=== PATIENT | female | born 1990 | race American Indian/Alaskan Native ===

== ENCOUNTER 2017-04-04 13:56 | Emergency (ER) | payer SELFPAY ==
[2017-04-04] MEDS ORDERED: Ibuprofen 600 MG Tab PO ONE (14:53)
--- NOTE | 2017-04-04 14:57 | EDM.PDOC ---
ED HPI GENERAL MEDICAL PROBLEM - General Chief Complaint: Genitourinary Problem Stated Complaint: UTI Time Seen by Provider: 04/04/17 14:00 Source of Information: Reports: Patient History Limitations: Reports: No Limitations - History of Present Illness INITIAL COMMENTS - FREE TEXT/NARRATIVE: History of present illness: [] Patient at 3 days of pain with urination and headache. She denies fevers, chills, nausea or vomiting. She also denies being . Review of systems: As per history of present illness and below otherwise all systems reviewed and negative. Past medical history: As per history of present illness and as reviewed below otherwise noncontributory. Surgical history: As per history of present illness and as reviewed below otherwise noncontributory. Social history: No reported history of drug or alcohol abuse. Family history: As per history of present illness and as reviewed below otherwise noncontributory. Physical exam: General: Well developed, well nourished in NAD HEENT: Atraumatic, normocephalic, pupils reactive, negative for conjunctival pallor or scleral icterus, mucous membranes moist, throat clear, neck supple, nontender, trachea midline. Lungs: Clear to auscultation, breath sounds equal bilaterally, chest nontender. Heart: S1S2, regular, negative for clicks, rubs, or JVD. Abdomen: Soft, nondistended, nontender. Negative for masses or hepatosplenomegaly. Negative for costovertebral tenderness. Pelvis: Stable nontender. Genitourinary: Deferred. Rectal: Deferred. Extremities: Atraumatic, negative for cords or calf pain. Neurovascular unremarkable. Neuro: Awake, alert, oriented. Cranial nerves II through XII unremarkable. Cerebellum unremarkable. Motor and sensory unremarkable throughout. Exam nonfocal. Diagnostics: [] UA positive for UTI patient is not . Therapeutics: [] Motrin Impression: [] UTI Plan: []BactrimDS twice a day until gone. increase fluids followup PMD Definitive disposition and diagnosis as appropriate pending reevaluation and review of above. urination Pain Score (Numeric/FACES): 8 - Related Data Allergies Allergy/AdvReac Type Severity Reaction Status Date / Time ibuprofen [From Advil] Allergy Other Verified 04/04/17 14:20 Home Meds: Home Meds Phenazopyridine HCl [Pyridium] 100 mg PO TID #9 tablet 04/04/17 [Rx] Sulfamethoxazole/Trimethoprim [Bactrim Ds Tablet] 1 each PO BID #20 tablet 04/04 [Rx] Past Medical History - Past Health History Medical/Surgical History: Denies Medical/Surgical History Social & Family History - Tobacco Use Smoking Status *Q: Never Smoker - Caffeine Use Caffeine Use: Reports: Coffee, Tea - Recreational Drug Use Recreational Drug Use: No ED ROS GENERAL - Review of Systems Review Of Systems: See Below (See history of present illness) ED EXAM, RENAL/ - Physical Exam Exam: See Below (See history of present illness) Course - Vital Signs Last Recorded V/S: Last Vital Signs Temp 36.5 C 04/04/17 14:26 Pulse 77 04/04/17 14:26 Resp 18 04/04/17 14:26 BP 116/71 04/04/17 14:26 Pulse Ox 99 04/04/17 14:26 - Orders/Labs/Meds Orders: Active Orders 24 hr Category Date Time Status CULTURE URINE [RM] Stat Lab 04/04/17 14:10 Received Labs: Laboratory Tests 04/04/17 04/04/17 Range/Units 14:10 14:10 Urine Color DARK YELLOW Urine Appearance SLT CLOUDY Urine pH 7.5 (5.0-8.0) Ur Specific [place] 1.015 (1.001-1.035) Urine Protein TRACE (NEGATIVE) mg/dL Urine Glucose (UA) NEGATIVE (NEGATIVE) mg/dL Urine Ketones NEGATIVE (NEGATIVE) mg/dL Urine Occult Blood NEGATIVE (NEGATIVE) Urine Nitrite POSITIVE H (NEGATIVE) Urine Bilirubin NEGATIVE (NEGATIVE) Urine Urobilinogen 4.0 H (<2.0) EU/dL Ur Leukocyte Esterase LARGE (NEGATIVE) Urine RBC 1-2 (0-2/HPF) Urine WBC 55-60 (0-5/HPF) Ur Epithelial Cells MODERATE (NONE-FEW) Urine Bacteria 1+ H (NEGATIVE) Urine HCG, Qual NEGATIVE (NEGATIVE) Meds: Medications Discontinued Medications Generic Name Dose Route Start Last Admin Trade Name Freq PRN Reason Stop Dose Admin Ibuprofen 600 mg 04/04/17 14:53 Motrin PO 04/04/17 14:54 ONETIME ONE Departure - Departure Time of Disposition: 14:55 Disposition: Home, Self-Care 01 Condition: good Clinical Impression: UTI (urinary tract infection) Qualifiers: Urinary tract infection type: site unspecified Hematuria presence: without hematuria Qualified Code(s): N39.0 - Urinary tract infection, site not specified - Discharge Information Prescriptions: Phenazopyridine HCl [Pyridium] 100 mg PO TID #9 tablet Sulfamethoxazole/Trimethoprim [Bactrim Ds Tablet] 1 each PO BID #20 tablet Referrals: PCP,None [Primary Care Provider] - Forms: ED Department Discharge Additional Instructions: The following information is given to patients seen in the emergency department who are being discharged to home. This information is to outline your options for follow-up care. We provide all patients seen in our emergency department with a follow-up referral. The need for follow-up, as well as the timing and circumstances, are variable depending upon the specifics of your emergency department visit. If you don't have a primary care physician on staff, we will provide you with a referral. We always advise you to contact your personal physician following an emergency department visit to inform them of the circumstance of the visit and for follow-up with them and/or the need for any referrals to a consulting specialist. The emergency department will also refer you to a specialist when appropriate. This referral assures that you have the opportunity for follow-up care with a specialist. All of these measure are taken in an effort to provide you with optimal care, which includes your follow-up. Under all circumstances we always encourage you to contact your private physician who remains a resource for coordinating your care. When calling for follow-up care, please make the office aware that this follow-up is from your recent emergency room visit. If for any reason you are refused follow-up, please contact the [facility] Emergency Department at and asked to speak to the emergency department charge nurse. Bactrim twice a day, Motrin or Tylenol for pain Followup PMD - My Orders Last 24 Hours: My Active Orders 04/04/17 14:10 CULTURE URINE [RM] Stat - Assessment/Plan Last 24 Hours: My Active Orders 04/04/17 14:10 CULTURE URINE [RM] Stat
[2017-04-04 15:23] VITALS: BP 114/74
== END 2017-04-04 15:17 | disposition home or self-care (01) ==
LOC: MW.ED 13:56
DX: N39.0 Urinary tract infection, site not specified (principal); Z88.6 Allergy status to analgesic agent
CPT/HCPCS: 81001; 81025; 87086; 87088; 87186; 99283; A9270

== ENCOUNTER 2017-04-18 04:45 | Emergency (ER) | payer SELFPAY ==
[2017-04-18] MEDS ORDERED: SUMAtriptan 6 MG/0.5 ML SDV SUBCUT ONE (05:10)
--- NOTE | 2017-04-18 05:14 | EDM.PDOC ---
ED HPI GENERAL MEDICAL PROBLEM - General Chief Complaint: Headache Stated Complaint: EARACHE- LEFT EAR Time Seen by Provider: 04/18/17 05:10 Source of Information: Reports: Patient - History of Present Illness INITIAL COMMENTS - FREE TEXT/NARRATIVE: HISTORY AND PHYSICAL: History of present illness: [] Patient has several complaints today she arrives by private vehicle Is migraine headache consistent with her usual migraine this improved somewhat with Tylenol she still rates 8/10, she is used Imitrex in the past which was aborted the headache she does not have any at this time Also has low-grade sinus symptoms likely contributing to the headaches as well left greater than right along with your pain which began after flying here from [place] recently She does have moderate clear effusion and dulling of landmarks no pain with movement of the auricle No fever vomiting chills sweats no chest pain shortness breath dizziness or palpitation no bowel or urine symptoms Review of systems: As per history of present illness and below otherwise all systems reviewed and negative. Past medical history: As per history of present illness and as reviewed below otherwise noncontributory. Surgical history: As per history of present illness and as reviewed below otherwise noncontributory. Social history: No reported history of drug or alcohol abuse. Family history: As per history of present illness and as reviewed below otherwise noncontributory. Physical exam: HEENT: Atraumatic, normocephalic, pupils reactive, negative for conjunctival pallor or scleral icterus, mucous membranes moist, throat clear, neck supple, nontender, trachea midline. Oropharynx mild erythema tonsils 2+ left tympanic membrane is dull with loss of landmarks injected no mastoid tenderness there is effusion present right mildly injected otherwise no mastoid tenderness no pain with movement of the auricle no meningeal sign no stridor, sinus pain noted left greater than right Lungs: Clear to auscultation, breath sounds equal bilaterally, chest nontender. Heart: S1S2, regular, negative for clicks, rubs, or JVD. Abdomen: Soft, nondistended, nontender. Negative for masses or hepatosplenomegaly. Negative for costovertebral tenderness. Pelvis: Stable nontender. Genitourinary: Deferred. Rectal: Deferred. Extremities: Atraumatic, negative for cords or calf pain. Neurovascular unremarkable. Neuro: Awake, alert, oriented. Cranial nerves II through XII unremarkable. Cerebellum unremarkable. Motor and sensory unremarkable throughout. Exam nonfocal. Diagnostics: [] Therapeutics: [] Imitrex 6 mg subcutaneous Amoxicillin 500 by mouth 3 times a day 150 mL no refill [id number] symptomatic therapies for effusion Impression: [] Acute sinusitis Migraine headache Left ear effusion Definitive disposition and diagnosis as appropriate pending reevaluation and review of above. general Pain Score (Numeric/FACES): 7 - Related Data Allergies Allergy/AdvReac Type Severity Reaction Status Date / Time ibuprofen [From Advil] Allergy Other Verified 04/18/17 04:48 Home Meds: Home Meds Phenazopyridine HCl [Pyridium] 100 mg PO TID #9 tablet 04/04/17 [Rx] Sulfamethoxazole/Trimethoprim [Bactrim Ds Tablet] 1 each PO BID #20 tablet 04/04 [Rx] Past Medical History - Past Health History Medical/Surgical History: Denies Medical/Surgical History HEENT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: None Cardiovascular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: None Respiratory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: None Gastrointestinal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: None 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: Musculoskeletal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: None Neurological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: None Psychiatric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: None Endocrine/Metabolic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: None Dermatologic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: None - Infectious Disease History Infectious Disease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: None - Past Surgical History HEENT Surgical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: None Female Surgical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: None Social & Family History - Family History Family Medical History: Noncontributory - Tobacco Use Smoking Status *Q: Never Smoker - Caffeine Use Caffeine Use: Reports: Coffee, Tea - Recreational Drug Use Recreational Drug Use: No ED ROS GENERAL - Review of Systems Review Of Systems: ROS reveals no pertinent complaints other than HPI. ED EXAM, GENERAL - Physical Exam Exam: See Below Course - Vital Signs Last Recorded V/S: Last Vital Signs Temp 36.6 C 04/18/17 04:52 Pulse 79 04/18/17 04:52 Resp 16 04/18/17 04:52 BP 129/76 04/18/17 04:52 Pulse Ox 96 04/18/17 04:52 - Orders/Labs/Meds Orders: Active Orders 24 hr Category Date Time Status SUMAtriptan [Imitrex] Med 04/18/17 05:10 Once 6 mg SUBCUT ONETIME ONE Departure - Departure Time of Disposition: 05:13 Disposition: Home, Self-Care 01 Condition: good Clinical Impression: Migraine, Sinusitis - Discharge Information Forms: ED Department Discharge Additional Instructions: Medication as prescribed Return if symptoms persist or worsen Followup with primary care as needed [facility] - [facility] [address] [place] [id number] The following information is given to patients seen in the emergency department who are being discharged to home. This information is to outline your options for follow-up care. We provide all patients seen in our emergency department with a follow-up referral. The need for follow-up, as well as the timing and circumstances, are variable depending upon the specifics of your emergency department visit. If you don't have a primary care physician on staff, we will provide you with a referral. We always advise you to contact your personal physician following an emergency department visit to inform them of the circumstance of the visit and for follow-up with them and/or the need for any referrals to a consulting specialist. The emergency department will also refer you to a specialist when appropriate. This referral assures that you have the opportunity for follow-up care with a specialist. All of these measure are taken in an effort to provide you with optimal care, which includes your follow-up. Under all circumstances we always encourage you to contact your private physician who remains a resource for coordinating your care. When calling for follow-up care, please make the office aware that this follow-up is from your recent emergency room visit. If for any reason you are refused follow-up, please contact the [facility] emergency department at and asked to speak to the emergency department charge nurse. - My Orders Last 24 Hours: My Active Orders 04/18/17 05:10 SUMAtriptan [Imitrex] 6 mg SUBCUT ONETIME ONE - Assessment/Plan Last 24 Hours: My Active Orders 04/18/17 05:10 SUMAtriptan [Imitrex] 6 mg SUBCUT ONETIME ONE
[2017-04-18 06:00] VITALS: BP 129/79
== END 2017-04-18 05:55 | disposition home or self-care (01) ==
LOC: MW.ED 04:45
DX: G43.909 Migraine, unspecified, not intractable, without status migrainosus (principal); H65.192 Other acute nonsuppurative otitis media, left ear; J32.9 Chronic sinusitis, unspecified
CPT/HCPCS: 96372; 99283; J3030

== ENCOUNTER 2017-05-30 00:33 | Emergency (ER) | payer MEDICAID ==
--- NOTE | 2017-05-30 00:45 | EDM.PDOC ---
ED HPI GENERAL MEDICAL PROBLEM - General Chief Complaint: [employer] Problem Stated Complaint: ABDOMINAL PAIN, 11 WEEKS PREG Time Seen by Provider: 05/30/17 00:42 - History of Present Illness INITIAL COMMENTS - FREE TEXT/NARRATIVE: HISTORY AND PHYSICAL: History of present illness: Patient 26-year-old female with history of 11 week intrauterine that' s been documented by ultrasound per patient presents with a concern of 3 days of mild abdominal cramping and vaginal bleeding there's been no trauma no dizziness no shortness of breath chest pain or other concern Review of systems: As per history of present illness and below otherwise all systems reviewed and negative. Past medical history: As per history of present illness and as reviewed below otherwise noncontributory. Surgical history: As per history of present illness and as reviewed below otherwise noncontributory. Social history: No reported history of drug or alcohol abuse. Family history: As per history of present illness and as reviewed below otherwise noncontributory. Physical exam: HEENT: Atraumatic, normocephalic, pupils reactive, negative for conjunctival pallor or scleral icterus, mucous membranes moist, throat clear, neck supple, nontender, trachea midline. Lungs: Clear to auscultation, breath sounds equal bilaterally, chest nontender. Heart: S1S2, regular, negative for clicks, rubs, or JVD. Abdomen: Soft, nondistended, nontender. Negative for masses or hepatosplenomegaly. Negative for costovertebral tenderness. Pelvis: Stable nontender. Genitourinary: Deferred. Rectal: Deferred. Extremities: Atraumatic, negative for cords or calf pain. Neurovascular unremarkable. Neuro: Awake, alert, oriented. Cranial nerves II through XII unremarkable. Cerebellum unremarkable. Motor and sensory unremarkable throughout. Exam nonfocal. Diagnostics: CBC ABO Rh UA Therapeutics: None Impression: #1 threatened miscarriage Definitive disposition and diagnosis as appropriate pending reevaluation and review of above. - Related Data Allergies Allergy/AdvReac Type Severity Reaction Status Date / Time ibuprofen [From Advil] Allergy Other Verified 04/18/17 04:48 Home Meds: Home Meds Phenazopyridine HCl [Pyridium] 100 mg PO TID #9 tablet 04/04/17 [Rx] Sulfamethoxazole/Trimethoprim [Bactrim Ds Tablet] 1 each PO BID #20 tablet 04/04 [Rx] Past Medical History - Past Health History Medical/Surgical History: Denies Medical/Surgical History HEENT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: None Cardiovascular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: None Respiratory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: None Gastrointestinal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: None Genitourinary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: None [employer]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: Musculoskeletal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: None Neurological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: None Psychiatric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: None Endocrine/Metabolic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: None Dermatologic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: None - Infectious Disease History Infectious Disease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: None - Past Surgical History HEENT Surgical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: None Female Surgical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: None Social & Family History - Family History Family Medical History: Noncontributory - Tobacco Use Smoking Status *Q: Never Smoker - Caffeine Use Caffeine Use: Reports: Coffee, Tea - Recreational Drug Use Recreational Drug Use: No ED ROS GENERAL - Review of Systems Review Of Systems: ROS reveals no pertinent complaints other than HPI. ED EXAM, GENERAL - Physical Exam Exam: See Below (See dictation) Course - Orders/Labs/Meds Orders: Active Orders 24 hr Category Date Time Status ABO/RH TYPE [BBK] Stat Lab 05/30/17 00:41 Ordered CBC WITH AUTO DIFF [HEME] Stat Lab 05/30/17 00:41 Ordered UA W/MICROSCOPIC [URIN] Stat Lab 05/30/17 00:41 Uncollected Departure - Departure Time of Disposition: 00:44 Disposition: Home, Self-Care 01 Condition: Good Clinical Impression: Threatened - Discharge Information Forms: ED Department Discharge Additional Instructions: The following information is given to patients seen in the emergency department who are being discharged to home. This information is to outline your options for follow-up care. We provide all patients seen in our emergency department with a follow-up referral. The need for follow-up, as well as the timing and circumstances, are variable depending upon the specifics of your emergency department visit. If you don't have a primary care physician on staff, we will provide you with a referral. We always advise you to contact your personal physician following an emergency department visit to inform them of the circumstance of the visit and for follow-up with them and/or the need for any referrals to a consulting specialist. The emergency department will also refer you to a specialist when appropriate. This referral assures that you have the opportunity for followup care with a specialist. All of these measure are taken in an effort to provide you with optimal care, which includes your followup. Under all circumstances we always encourage you to contact your private physician who remains a resource for coordinating your care. When calling for followup care, please make the office aware that this follow-up is from your recent emergency room visit. If for any reason you are refused follow-up, please contact the [facility] emergency department at and asked to speak to the emergency department charge nurse. Vaginal rest as discussed follow-up [employer] 2448 hrs. return as needed as discussed - My Orders Last 24 Hours: My Active Orders 05/30/17 00:41 ABO/RH TYPE [BBK] Stat CBC WITH AUTO DIFF [HEME] Stat UA W/MICROSCOPIC [URIN] Stat - Assessment/Plan Last 24 Hours: My Active Orders 05/30/17 00:41 ABO/RH TYPE [BBK] Stat CBC WITH AUTO DIFF [HEME] Stat UA W/MICROSCOPIC [URIN] Stat
[2017-05-30 01:57] VITALS: BP 110/61
== END 2017-05-30 01:57 | disposition home or self-care (01) ==
LOC: MW.ED 00:33
DX: O20.0 Threatened abortion (principal); Z88.6 Allergy status to analgesic agent; Z3A.11 11 weeks gestation of pregnancy
CPT/HCPCS: 36415; 81001; 85025; 86900; 86901; 99283

== ENCOUNTER 2017-07-18 00:22 | Emergency (ER) | payer MEDICAID ==
[2017-07-18] MEDS ORDERED: Sodium Chloride 0.9% 1,000 ML IV ONE (00:40)
--- NOTE | 2017-07-18 00:43 | EDM.PDOC ---
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 Past medical history: As per history of present illness and as reviewed below otherwise noncontributory. Surgical history: As per history of present illness and as reviewed below otherwise noncontributory. Social history: No reported history of drug or alcohol abuse. Family history: As per history of present illness and as reviewed below otherwise noncontributory. Physical exam: HEENT: Atraumatic, normocephalic, pupils reactive, negative for conjunctival pallor or scleral icterus, mucous membranes moist, throat clear, neck supple, nontender, trachea midline. Lungs: Clear to auscultation, breath sounds equal bilaterally, chest nontender. Heart: S1S2, regular, negative for clicks, rubs, or JVD. Abdomen: Soft, gravid uterus consistent with dates nontender heart tones pending. Negative for masses or hepatosplenomegaly. Negative for costovertebral tenderness. Pelvis: Stable nontender. Genitourinary: Deferred. Rectal: Deferred. Extremities: Atraumatic, negative for cords or calf pain. Neurovascular unremarkable. Neuro: Awake, alert, oriented. Cranial nerves II through XII unremarkable. Cerebellum unremarkable. Motor and sensory unremarkable throughout. Exam nonfocal. Diagnostics: CBC CMP amylase lipase UA urine culture heart tones Therapeutics: Normal saline 1 L bolus Impression: #118 week intrauterine #2 nonspecific abdominal pain Definitive disposition and diagnosis as appropriate pending reevaluation and review of above. abdominal Pain Score (Numeric/FACES): 6 - Related Data Allergies Allergy/AdvReac Type Severity Reaction Status Date / Time ibuprofen [From Advil] Allergy Swelling Verified 07/18/17 00:35 Home Meds: Home Meds . 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: Musculoskeletal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: None Neurological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: None Psychiatric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: None Endocrine/Metabolic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: None Dermatologic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: None - Infectious Disease History Infectious Disease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: None - Past Surgical History HEENT Surgical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: None Female Surgical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: None Social & Family History - Family History Family Medical History: Noncontributory - Tobacco Use Smoking Status *Q: Never Smoker Second Hand Smoke Exposure: No - Caffeine Use Caffeine Use: Reports: Coffee, Tea - Recreational Drug Use Recreational Drug Use: No ED ROS GENERAL - Review of Systems Review Of Systems: ROS reveals no pertinent complaints other than HPI. ED EXAM, GENERAL - Physical Exam Exam: See Below (See dictation) Course - Vital Signs Last Recorded V/S: Last Vital Signs Temp 35.9 C 07/18/17 00:35 Pulse 71 07/18/17 00:35 Resp 14 07/18/17 00:35 BP 112/62 07/18/17 00:35 Pulse Ox 98 07/18/17 00:35 - Orders/Labs/Meds Orders: Active Orders 24 hr Category Date Time Status Heart Tones [RC] ASDIRECTED Care 07/18/17 00:40 Active CULTURE URINE [RM] Stat Lab 07/18/17 00:45 Received Labs: Laboratory Tests 07/18/17 07/18/17 07/18/17 Range/Units 00:45 00:45 00:45 WBC 12.13 H (4.0-11.0) K/uL RBC 3.98 L (4.30-5.90) M/uL Hgb 12.3 (12.0-16.0) g/dL Hct 36.3 (36.0-46.0) % MCV 91.2 (80.0-98.0) fL MCH 30.9 (27.0-32.0) pg MCHC 33.9 (31.0-37.0) g/dL RDW Std Deviation 43.1 (28.0-62.0) fl RDW Coeff of Harry 13 (11.0-15.0) % Plt Count 210 (150-400) K/uL MPV 12.40 H (7.40-12.00) fL Neut % (Auto) 70.6 (48.0-80.0) % Lymph % (Auto) 23.7 (16.0-40.0) % [place] % (Auto) 4.0 (0.0-15.0) % Eos % (Auto) 1.6 (0.0-7.0) % Baso % (Auto) 0.1 (0.0-1.5) % Neut # (Auto) 8.6 H (1.4-5.7) K/uL Lymph # (Auto) 2.9 H (0.6-2.4) K/uL [place] # (Auto) 0.5 (0.0-0.8) K/uL Eos # (Auto) 0.2 (0.0-0.7) K/uL Baso # (Auto) 0.0 (0.0-0.1) K/uL Nucleated RBC % 0.0 /100WBC Nucleated RBCs # 0 K/uL Sodium 139 (136-146) mmol/L Potassium 3.7 (3.5-5.1) mmol/L Chloride 111 H (98-110) mmol/L Carbon Dioxide 20 L (21-31) mmol/L BUN 5 L (6.0-23.0) mg/dL Creatinine 0.6 (0.6-1.5) mg/dL Est Cr Clr Drug Dosing 115.47 mL/min Estimated GFR (MDRD) > 60.0 ml/min Glucose 98 (60-110) mg/dL Calcium 9.3 (8.8-10.8) mg/dL Total Bilirubin 0.3 (0.1-1.5) mg/dL AST 15 (5-40) IU/L ALT 6 L (8-54) IU/L Alkaline Phosphatase 59 (40-150) Total Protein 7.0 (6.0-8.0) g/dL Albumin 3.8 (3.5-5.0) g/dL Globulin 3.2 (2.0-3.5) g/dL Albumin/Globulin Ratio 1.2 L (1.3-2.8) Amylase 70 (10-90) U/L Lipase 47 (7-80) U/L Urine Color YELLOW Urine Appearance CLEAR Urine pH 6.0 (5.0-8.0) Ur Specific [place] 1.020 (1.001-1.035) Urine Protein NEGATIVE (NEGATIVE) mg/dL Urine Glucose (UA) NEGATIVE (NEGATIVE) mg/dL Urine Ketones NEGATIVE (NEGATIVE) mg/dL Urine Occult Blood NEGATIVE (NEGATIVE) Urine Nitrite NEGATIVE (NEGATIVE) Urine Bilirubin NEGATIVE (NEGATIVE) Urine Urobilinogen 1.0 (<2.0) EU/dL Ur Leukocyte Esterase SMALL (NEGATIVE) Urine RBC 0-2 (0-2/HPF) Urine WBC 1-4 (0-5/HPF) Ur Epithelial Cells FEW (NONE-FEW) Urine Bacteria FEW (NEGATIVE) Meds: Medications Discontinued Medications Generic Name Dose Route Start Last Admin Trade Name Freq PRN Reason Stop Dose Admin Sodium Chloride 1,000 mls @ 999 mls/hr 07/18/17 00:40 07/18/17 00:57 Normal Saline IV 07/18/17 01:40 999 mls/hr STAT ONE Administration Departure - Departure Time of Disposition: 01:52 Disposition: Home, Self-Care 01 Condition: Good Clinical Impression: Intrauterine , Abdominal pain - Discharge Information Referrals: PCP,None [Primary Care Provider] - Forms: ED Department Discharge - My Orders Last 24 Hours: My Active Orders 07/18/17 00:40 Heart Tones [RC] ASDIRECTED 07/18/17 00:45 CULTURE URINE [RM] Stat - Assessment/Plan Last 24 Hours: My Active Orders 07/18/17 00:40 Heart Tones [RC] ASDIRECTED 07/18/17 00:45 CULTURE URINE [RM] Stat
[2017-07-18 01:21] LABS: CHLORIDE,CL 111 mmol/L (98-110); SODIUM,NA 139 mmol/L (136-146)
[2017-07-18 05:46] VITALS: BP 95/51
== END 2017-07-18 02:03 | disposition home or self-care (01) ==
LOC: MW.ED 00:22
DX: O99.89 Other specified diseases and conditions complicating pregnancy, childbirth and the puerperium (principal); R10.9 Unspecified abdominal pain; Z88.6 Allergy status to analgesic agent; Z3A.18 18 weeks gestation of pregnancy
CPT/HCPCS: 80053; 81001; 82150; 83690; 85025; 87086; 96360; 99284; J7040; 99283

== ENCOUNTER 2017-12-10 18:49 | Inpatient (IN) | payer MEDICAID ==
[2017-12-10] MEDS ORDERED: Lidocaine 1% 50 ML MDV INJECT PRN (20:16)
[2017-12-10] MEDS ORDERED: Misoprostol 200 MCG Tab PO PRN (20:16)
[2017-12-10] MEDS ORDERED: Sodium Chloride 0.9% 10 ML Syringe FLUSH PRN (20:16)
[2017-12-10] MEDS ORDERED: Butorphanol 1 MG/ML SDV IVPUSH PRN (20:16)
[2017-12-10] MEDS ORDERED: Water For Irrigation,Sterile 1,000 ML Container IRR PRN (20:16)
[2017-12-10] MEDS ORDERED: Carboprost Tromethamine 250 MCG/1 ML Amp IM PRN (20:16)
[2017-12-10] MEDS ORDERED: Sodium Chloride 0.9% 2.5 ML Syringe FLUSH PRN (20:16)
[2017-12-10] MEDS ORDERED: Nalbuphine 10 MG/1 ML Vial IVPUSH PRN (20:16)
[2017-12-10] MEDS ORDERED: Methylergonovine 0.2 MG/1 ML Amp IM PRN (20:16)
[2017-12-10] MEDS ORDERED: Oxytocin/0.9 % Sodium Chloride 30 UNIT/500 ML BAG IV SCH (20:30)
[2017-12-10] MEDS: Lactated Ringers 1,000 ML IV SCH ×2 (22:19→23:30)
--- NOTE | 2017-12-10 22:21 | PCM.LDHP ---
L&D History of Present Illness - General Date of Service: 12/10/17 Admit Problem/Dx: Patient Status Order with Admit Dx/Problem 12/10/17 20:16 Patient Status [ADT] Routine Admission Diagnosis/Problem Admission Diagnosis/Problem 12/10/17 22:16 27yo EDC 12/17/2017 39 wks, O+, R-equivocal, GBS neg. Active labor Source of Information: Patient History Limitations: Reports: No Limitations - History of Present Illness Improves with: Reports: None Worsens with: Reports: None Associated Symptoms: Reports: N - Related Data Allergies/Adverse Reactions: Allergies Allergy/AdvReac Type Severity Reaction Status Date / Time ibuprofen [From Advil] Allergy Swelling Verified 11/16/17 23:07 Home Medications: Home Meds . 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 History: Musculoskeletal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: None Neurological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: None Psychiatric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: None Endocrine/Metabolic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: None Dermatologic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: None - Infectious Disease History Infectious Disease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: None - Past Surgical History HEENT Surgical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: None Female Surgical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: None Social & Family History - Family History Family Medical History: Noncontributory - Tobacco Use Smoking Status *Q: Never Smoker Second Hand Smoke Exposure: No - Caffeine Use Caffeine Use: Reports: Coffee, Soda - Recreational Drug Use Recreational Drug Use: No H&P Review of Systems - Review of Systems: Review Of Systems: See Below General: Reports: No Symptoms HEENT: Reports: No Symptoms Pulmonary: Reports: No Symptoms Cardiovascular: Reports: No Symptoms Gastrointestinal: Reports: No Symptoms Genitourinary: Reports: No Symptoms Musculoskeletal: Reports: No Symptoms Skin: Reports: No Symptoms Psychiatric: Reports: No Symptoms Neurological: Reports: No Symptoms Hematologic/Lymphatic: Reports: No Symptoms Immunologic: Reports: No Symptoms L&D Exam - Exam Exam: See Below - Vital Signs Weight: 67.132 kg - OB Specific Contraction Intensity: Strong Movement: Active Heart Tones: Present Heart Rate (FHR) Variability: Moderate (6-25 bmp) Presentation: Vertex - Yanes Score Yanes Score Cervix Position: Anterior Yanes Score Consistency: Soft Yanes Score Effacement: >80% Yanes Score Dilation: > 5 cm Yanes Score 's Station: -1 ,0 Yanes Score Total: 12 - Exam General: Alert, Oriented, Cooperative HEENT: Hearing Intact Lungs: Normal Respiratory Effort GI/Abdominal Exam: Soft, Non-Tender (gravid) Rectal Exam: Deferred Genitourinary: Normal external exam, Normal bimanual exam Back Exam: Full Range of Motion Extremities: Normal Range of Motion, Non-Tender, No Pedal Edema, Normal Capillary Refill Skin: Warm, Dry, Intact Neurological: Reflexes Equal Bilateral, Normal Speech, Normal Tone Psychiatric: Alert, Normal Affect, Normal Mood - Patient Data Lab Results Last 24 hrs: Laboratory Results - last 24 hr 12/10/17 Range/Units 20:45 WBC 15.15 H (4.0-11.0) K/uL RBC 3.60 L (4.30-5.90) M/uL Hgb 10.0 L (12.0-16.0) g/dL Hct 30.7 L (36.0-46.0) % MCV 85.3 (80.0-98.0) fL MCH 27.8 (27.0-32.0) pg MCHC 32.6 (31.0-37.0) g/dL RDW Std Deviation 45.1 (28.0-62.0) fl RDW Coeff of Harry 15 (11.0-15.0) % Plt Count 200 (150-400) K/uL MPV 13.50 H (7.40-12.00) fL Nucleated RBC % 0.0 /100WBC Nucleated RBCs # 0 K/uL Result Diagrams: 12/10/17 20:45 - Problem List (1) Supervision of normal IUP (intrauterine ) in multigravida SNOMED Code(s): 171433661, 456142529 ICD Code: Z34.80 - ENCOUNTER FOR SUPRVSN OF NORMAL , UNSP TRIMESTER Status: Acute Priority: High Current Visit: Yes Qualifiers: Trimester: third trimester Qualified Code(s): Z34.83 - Encounter for supervision of other normal , third trimester Problem List Initiated/Reviewed/Updated: Yes Orders Last 24hrs: Active Orders 24 hr Category Date Time Status Patient Status [ADT] Routine ADT 12/10/17 20:16 Active Heart Tones [RC] CONTINUOUS Care 12/10/17 20:16 Active Non Stress Test [RC] PER UNIT ROUTINE Care 12/10/17 20:16 Active May Shower [RC] ASDIRECTED Care 12/10/17 20:16 Active Notify Provider [RC] PRN Care 12/10/17 20:16 Active Up ad Arlette [RC] ASDIRECTED Care 12/10/17 20:16 Active Vaginal Exam [RC] PRN Care 12/10/17 20:16 Active Vital Signs [RC] PER UNIT ROUTINE Care 12/10/17 20:16 Active TYPE AND SCREEN [BBK] Routine Lab 12/10/17 20:45 Received Butorphanol [Stadol] Med 12/10/17 20:16 Active 1 mg IVPUSH Q1H PRN Carboprost Tromethamine [Hemabate DS] Med 12/10/17 20:16 Active 250 mcg IM ASDIRECTED PRN Lactated Ringers [Ringers, Lactated] 1,000 ml Med 12/10/17 20:30 Active IV ASDIRECTED Lidocaine 1% [Xylocaine 1%] Med 12/10/17 20:16 Active 50 ml INJECT .ONCE PRN Methylergonovine [Methergine] Med 12/10/17 20:16 Active 0.2 mg IM ASDIRECTED PRN Misoprostol [Cytotec] Med 12/10/17 20:16 Active 200 mcg PO .ONCE PRN Nalbuphine [Nubain] Med 12/10/17 20:16 Active 10 mg IVPUSH Q1H PRN Oxytocin/0.9 % Sodium Chloride [Oxytocin 30 Unit/500 ML Med 12/10/17 20:30 Active -NS] 30 unit in 500 ml IV TITRATE Sodium Chloride 0.9% [Saline Flush] Med 12/10/17 20:16 Active 10 ml FLUSH ASDIRECTED PRN Sodium Chloride 0.9% [Saline Flush] Med 12/10/17 20:16 Active 2.5 ml FLUSH ASDIRECTED PRN Water For Irrigation,Sterile [Sterile Water for Med 12/10/17 20:16 Active Irrigation] 1,000 ml IRR ASDIRECTED PRN Scalp Electrode [WOMSER] Per Unit Routine Oth 12/10/17 20:16 Ordered Peripheral IV Insertion Adult [OM.PC] Routine Oth 12/10/17 20:16 Ordered Resuscitation Status Routine Resus Stat 12/10/17 20:16 Ordered Medication Orders Butorphanol Tartrate (Stadol) 1 mg IVPUSH Q1H PRN PRN Reason: Pain Carboprost Tromethamine (Hemabate Ds) 250 mcg IM ASDIRECTED PRN PRN Reason: Post Hemorrhage Lactated Ringer's (Ringers, Lactated) 1,000 mls @ 150 mls/hr IV ASDIRECTED JO-ANN Oxytocin/Sodium Chloride (Oxytocin 30 Unit/500 Ml-Ns) 30 unit in 500 mls @ 999 mls/hr IV TITRATE JO-ANN Lidocaine HCl (Xylocaine 1%) 50 ml INJECT .ONCE PRN PRN Reason: Laceration repair Methylergonovine Maleate (Methergine) 0.2 mg IM ASDIRECTED PRN PRN Reason: Post Hemorrhage Misoprostol (Cytotec) 200 mcg PO .ONCE PRN PRN Reason: Post Hemorrhage Nalbuphine HCl (Nubain) 10 mg IVPUSH Q1H PRN PRN Reason: Pain (severe 7-10) Sodium Chloride (Saline Flush) 10 ml FLUSH ASDIRECTED PRN PRN Reason: Keep Vein Open Sodium Chloride (Saline Flush) 2.5 ml FLUSH ASDIRECTED PRN PRN Reason: Keep Vein Open Sterile Water (Sterile Water For Irrigation) 1,000 ml IRR ASDIRECTED PRN PRN Reason: delivery Assessment/Plan Comment:: Labor A:27yo EDC 12/17/2017 39 wks, O+, R-equivocal, GBS neg. Active labor P:admit to L&D, epidural prn, anticipate . Dr Ng updated
[2017-12-10] MEDS ORDERED: Ropivacaine 100 ML ONE (22:30)
[2017-12-10] MEDS ORDERED: Ropivacaine 0.2% 2 MG/ML 20 ML SDV ONE (22:30)
[2017-12-10] MEDS ORDERED: fentaNYL 100 MCG/2 ML SDV ONE (22:31)
--- NOTE | 2017-12-11 00:08 | PCM.PREANE ---
Preanesthetic Assessment - Anesthesia/Transfusion/Family Hx Anesthesia History: No Prior Anesthesia Family History of Anesthesia Reaction: No - Review of Systems General: No Symptoms Pulmonary: No Symptoms Cardiovascular: No Symptoms Gastrointestinal: No Symptoms Neurological: No Symptoms Other: Reports: None (Denies any personal or family hx of bleeding or clotting problems) - Physical Assessment Height: 1.6 m Weight: 67.132 kg ASA Class: 2 Mental Status: Alert & Oriented x3 Airway Class: Mallampati = 2 Dentition: Reports: Normal Dentition ROM/Head Extension: Full - Lab Values: Laboratory Last Values WBC 15.15 K/uL (4.0-11.0) H 12/10/17 20:45 RBC 3.60 M/uL (4.30-5.90) L 12/10/17 20:45 Hgb 10.0 g/dL (12.0-16.0) L 12/10/17 20:45 Hct 30.7 % (36.0-46.0) L 12/10/17 20:45 MCV 85.3 fL (80.0-98.0) 12/10/17 20:45 MCH 27.8 pg (27.0-32.0) 12/10/17 20:45 MCHC 32.6 g/dL (31.0-37.0) 12/10/17 20:45 RDW Std Deviation 45.1 fl (28.0-62.0) 12/10/17 20:45 RDW Coeff of Harry 15 % (11.0-15.0) 12/10/17 20:45 Plt Count 200 K/uL (150-400) 12/10/17 20:45 MPV 13.50 fL (7.40-12.00) H 12/10/17 20:45 Nucleated RBC % 0.0 /100WBC 12/10/17 20:45 Nucleated RBCs # 0 K/uL 12/10/17 20:45 Blood Type O POSITIVE 12/10/17 20:45 Antibody Screen NEGATIVE 12/10/17 20:45 - Allergies Allergies/Adverse Reactions: Allergies Allergy/AdvReac Type Severity Reaction Status Date / Time ibuprofen [From Advil] Allergy Swelling Verified 11/16/17 23:07 - Acknowledgements Anesthesia Type Planned: Epidural Pt an Appropriate Candidate for the Planned Anesthesia: Yes Alternatives and Risks of Anesthesia Discussed w Pt/Guardian: Yes Pt/Guardian Understands and Agrees with Anesthesia Plan: Yes PreAnesthesia Questionnaire - Past Health History Medical/Surgical History: Denies Medical/Surgical History HEENT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: None Cardiovascular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: None Respiratory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: None Gastrointestinal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: None Genitourinary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: None 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 [No Known Home Meds] 05/30/17 [History] - CURRENT (IN HOUSE) MEDS Current Meds: Current Medications Butorphanol Tartrate (Stadol) 1 mg IVPUSH Q1H PRN PRN Reason: Pain Carboprost Tromethamine (Hemabate Ds) 250 mcg IM ASDIRECTED PRN PRN Reason: Post Hemorrhage Lactated Ringer's (Ringers, Lactated) 1,000 mls @ 150 mls/hr IV ASDIRECTED [facility] Last Admin: 12/10/17 23:30 Dose: 150 mls/hr Oxytocin/Sodium Chloride (Oxytocin 30 Unit/500 Ml-Ns) 30 unit in 500 mls @ 999 mls/hr IV TITRATE [facility] Lidocaine HCl (Xylocaine 1%) 50 ml INJECT .ONCE PRN PRN Reason: Laceration repair Methylergonovine Maleate (Methergine) 0.2 mg IM ASDIRECTED PRN PRN Reason: Post Hemorrhage Misoprostol (Cytotec) 200 mcg PO .ONCE PRN PRN Reason: Post Hemorrhage Nalbuphine HCl (Nubain) 10 mg IVPUSH Q1H PRN PRN Reason: Pain (severe 7-10) Sodium Chloride (Saline Flush) 10 ml FLUSH ASDIRECTED PRN PRN Reason: Keep Vein Open Sodium Chloride (Saline Flush) 2.5 ml FLUSH ASDIRECTED PRN PRN Reason: Keep Vein Open Sterile Water (Sterile Water For Irrigation) 1,000 ml IRR ASDIRECTED PRN PRN Reason: delivery Discontinued Medications Fentanyl (Sublimaze) Confirm Administered Dose 300 mcg .ROUTE .STK-MED ONE Stop: 12/10/17 22:32 Ropivacaine (Naropin 0.2%) Confirm Administered Dose 100 mls @ as directed .ROUTE [facility]-MED ONE Stop: 12/10/17 22:31 Ropivacaine (Naropin 0.2%) Confirm Administered Dose 20 ml .ROUTE .[facility]-MED ONE Stop: 12/10/17 22:31
--- NOTE | 2017-12-11 02:45 | PCM.DEL ---
L & D Note - General Info Date of Service: 12/11/17 - Delivery Note Labor: Spontaneous Delivery Outcome: Livebirth Delivery Method: Spontaneous Vaginal Delivery-Single Delivery Mode: Spontaneous Presentation: Vertex Nuchal Cord: Present Anesthesia Type: None Amniotic Fluid Description: Clear Episiotomy Type: None Laceration: None Placenta: Intact, Spontaneous Cord: 3 Vessels Estimated Blood Loss: 150 Resuscitation Needed: No [place]: Stimulated Score 1 min: 9 Score 5 min: 9 Second Stage Interventions: Reports: Pushing Effectively, Pushing, Pulls Own Legs Back Delivery Comments (Free Text/Narrative):: of viable male over intact perineum. Head delivered with great pushing, nuchel x1 noted and reduced over head, shoulders and body followed easily, Infant to mothers abd with RN at bs for evaluation. Delayed cord clamping x 1 minuet then clamped x2 and cut by FOB. Pitocin to IFV. Cord blood collected. Placenta delivered grossly intact. Inspection noted intact perineum. Cat II tracing at 9cm. EBL 150cc, APGARS 9/9, Wt 6lb 11oz. Mother and baby left in stable condition for recovery bonding well with jose at bs. - General Info Date of Service: 12/11/17 Admission Dx/Problem (Free Text): Patient Status Order with Admit Dx/Problem 12/10/17 20:16 Patient Status [ADT] Routine Admission Diagnosis/Problem Admission Diagnosis/Problem 12/10/17 22:16 27yo EDC 12/17/2017 39 wks, O+, R-equivocal, GBS neg. Active labor Functional Status: Reports: Pain Controlled, Tolerating Diet - Review of Systems General: Reports: No Symptoms HEENT: Reports: No Symptoms Pulmonary: Reports: No Symptoms Cardiovascular: Reports: No Symptoms Gastrointestinal: Reports: No Symptoms Genitourinary: Reports: No Symptoms Musculoskeletal: Reports: No Symptoms Skin: Reports: No Symptoms Neurological: Reports: No Symptoms Psychiatric: Reports: No Symptoms - Patient Data Weight - Most Recent: 67.132 kg Lab Results Last 24 Hours: Laboratory Results - last 24 hr 12/10/17 12/10/17 Range/Units 20:45 20:45 WBC 15.15 H (4.0-11.0) K/uL RBC 3.60 L (4.30-5.90) M/uL Hgb 10.0 L (12.0-16.0) g/dL Hct 30.7 L (36.0-46.0) % MCV 85.3 (80.0-98.0) fL MCH 27.8 (27.0-32.0) pg MCHC 32.6 (31.0-37.0) g/dL RDW Std Deviation 45.1 (28.0-62.0) fl RDW Coeff of Harry 15 (11.0-15.0) % Plt Count 200 (150-400) K/uL MPV 13.50 H (7.40-12.00) fL Nucleated RBC % 0.0 /100WBC Nucleated RBCs # 0 K/uL Blood Type O POSITIVE Antibody Screen NEGATIVE Med Orders - Current: Current Medications Butorphanol Tartrate (Stadol) 1 mg IVPUSH Q1H PRN PRN Reason: Pain Carboprost Tromethamine (Hemabate Ds) 250 mcg IM ASDIRECTED PRN PRN Reason: Post Hemorrhage Lactated Ringer's (Ringers, Lactated) 1,000 mls @ 150 mls/hr IV ASDIRECTED [facility] Last Admin: 12/10/17 23:30 Dose: 150 mls/hr Oxytocin/Sodium Chloride (Oxytocin 30 Unit/500 Ml-Ns) 30 unit in 500 mls @ 999 mls/hr IV TITRATE [facility] Last Admin: 12/11/17 02:34 Dose: 999 mls/hr Lidocaine HCl (Xylocaine 1%) 50 ml INJECT .ONCE PRN PRN Reason: Laceration repair Methylergonovine Maleate (Methergine) 0.2 mg IM ASDIRECTED PRN PRN Reason: Post Hemorrhage Misoprostol (Cytotec) 200 mcg PO .ONCE PRN PRN Reason: Post Hemorrhage Nalbuphine HCl (Nubain) 10 mg IVPUSH Q1H PRN PRN Reason: Pain (severe 7-10) Sodium Chloride (Saline Flush) 10 ml FLUSH ASDIRECTED PRN PRN Reason: Keep Vein Open Sodium Chloride (Saline Flush) 2.5 ml FLUSH ASDIRECTED PRN PRN Reason: Keep Vein Open Sterile Water (Sterile Water For Irrigation) 1,000 ml IRR ASDIRECTED PRN PRN Reason: delivery Discontinued Medications Fentanyl (Sublimaze) Confirm Administered Dose 300 mcg .ROUTE .STK-MED ONE Stop: 12/10/17 22:32 Ropivacaine (Naropin 0.2%) Confirm Administered Dose 100 mls @ as directed .ROUTE .STK-MED ONE Stop: 12/10/17 22:31 Ropivacaine (Naropin 0.2%) Confirm Administered Dose 20 ml .ROUTE .STK-MED ONE Stop: 12/10/17 22:31 - Exam General: Alert, Cooperative, No Acute Distress Lungs: Normal Respiratory Effort GI/Abdominal Exam: Soft, Non-Tender (Female) Exam: Normal External Exam, Normal Bimanual Exam, Vaginal Bleeding Extremities: Normal Range of Motion, Non-Tender, No Pedal Edema, Normal Capillary Refill Skin: Warm, Dry, Intact Wound/Incisions: Healing Well Neurological: No New Focal Deficit, Normal Speech, Normal Tone Psy/Mental Status: Alert, Normal Affect, Normal Mood - Problem List & Annotations (1) Supervision of normal IUP (intrauterine ) in multigravida SNOMED Code(s): 268374350, 868227333 Code(s): Z34.80 - ENCOUNTER FOR SUPRVSN OF NORMAL , UNSP TRIMESTER Status: Acute Priority: High Current Visit: Yes Qualifiers: Trimester: third trimester Qualified Code(s): Z34.83 - Encounter for supervision of other normal , third trimester (2) (normal spontaneous vaginal delivery) SNOMED Code(s): 81663930 Code(s): O80 - ENCOUNTER FOR FULL-TERM UNCOMPLICATED DELIVERY Status: Acute Priority: High Current Visit: Yes - Problem List Review Problem List Initiated/Reviewed/Updated: Yes - Assessment Assessment:: Delivery of viable male [place]. APGARS 9/9, Wt: 6lb 11oz. Intact perineum, EBL: 150cc. Mother and baby stable. Bonding well - Plan Plan:: Labor A:27yo EDC 12/17/2017 39 wks, O+, R-equivocal, GBS neg. Active labor P:admit to L&D, epidural prn, anticipate . Dr Ng updated Delivery P: routine pp plan of care
[2017-12-11] MEDS ORDERED: Bisacodyl 10 MG Supp RECTAL PRN (02:49)
[2017-12-11] MEDS ORDERED: Lanolin 100% Cream 7 GM Tube TOP PRN (02:49)
[2017-12-11] MEDS ORDERED: Benzocaine/Menthol 20%-0.5% Spray 78 GM Cannister TOP PRN (02:49)
[2017-12-11] MEDS ORDERED: oxyCODONE 5 MG Tab PO PRN (02:49)
[2017-12-11] MEDS ORDERED: Measles, Mumps & Rubella Vaccine 0.5 ML SDV SUBCUT ONE (02:49)
[2017-12-11] MEDS ORDERED: Witch Hazel Medicated Pads 40/Jar TOP PRN (02:49)
[2017-12-11] MEDS ORDERED: Acetaminophen 500 MG Tab PO PRN (02:49)
[2017-12-11] MEDS: Acetaminophen 500 MG Tab PO PRN ×2 (05:26→15:15)
[2017-12-11] MEDS: Docusate Sodium 100 MG Cap PO PRN (10:00)
--- NOTE | 2017-12-11 15:11 | PCM48HPAN ---
Post Anesthesia Note - EVALUATION WITHIN 48HRS OF ANESTHETIC Patient Participated in Evaluation: Yes Respiratory Function Stable: Yes Airway Patent: Yes Cardiovascular Function Stable: Yes Hydration Status Stable: Yes Pain Control Satisfactory: Yes Nausea and Vomiting Control Satisfactory: Yes Mental Status Recovered: Yes
--- NOTE | 2017-12-12 07:26 | PCM.DCSUM1 ---
Discharge Summary - Hospital Course Free Text/Narrative:: Discharge home with . Follow up in 6 weeks for post exam or sooner if needed. - Discharge Data Discharge Date: 12/12/17 Discharge Disposition: Home, Self-Care 01 Condition: Good - Discharge Diagnosis/Problem(s) (1) Supervision of normal IUP (intrauterine ) in multigravida SNOMED Code(s): 688796421, 611842247 ICD Code: Z34.80 - ENCOUNTER FOR SUPRVSN OF NORMAL , UNSP TRIMESTER Status: Acute Priority: High Current Visit: Yes Qualifiers: Trimester: third trimester Qualified Code(s): Z34.83 - Encounter for supervision of other normal , third trimester (2) (normal spontaneous vaginal delivery) SNOMED Code(s): 30467761 ICD Code: O80 - ENCOUNTER FOR FULL-TERM UNCOMPLICATED DELIVERY Status: Acute Priority: High Current Visit: Yes - Patient Instructions Diet: Usual Diet as Tolerated Activity: As Tolerated, No Strenuous Activities, Rest and Relax Today Driving: May Drive Today Showering/Bathing: May Shower Notify Provider of: Fever, Increased Pain, Swelling and Redness, Drainage, Nausea and/or Vomiting Other/Special Instructions: Discharge home with infant. Follow up in 6 weeks for post exam or sooner if needed. - Discharge Plan Home Medications: Home Meds . [No Known Home Meds] 05/30/17 [History] - General Info Date of Service: 12/12/17 Admission Dx/Problem (Free Text: Patient Status Order with Admit Dx/Problem 12/10/17 20:16 Patient Status [ADT] Routine Admission Diagnosis/Problem Admission Diagnosis/Problem 12/10/17 22:16 27yo EDC 12/17/2017 39 wks, O+, R-equivocal, GBS neg. Active labor Functional Status: Reports: Pain Controlled, Tolerating Diet, Ambulating, Urinating - Review of Systems General: Reports: No Symptoms HEENT: Reports: No Symptoms Pulmonary: Reports: No Symptoms Cardiovascular: Reports: No Symptoms Gastrointestinal: Reports: No Symptoms Genitourinary: Reports: No Symptoms Musculoskeletal: Reports: No Symptoms Skin: Reports: No Symptoms Neurological: Reports: No Symptoms Psychiatric: Reports: No Symptoms - Patient Data Vitals - Most Recent: Last Vital Signs Temp 36.6 C 12/12/17 04:00 Pulse 78 12/12/17 04:00 Resp 16 12/12/17 04:00 BP 105/67 12/12/17 04:00 Pulse Ox 96 12/12/17 04:00 Weight - Most Recent: 67.132 kg Med Orders - Current: Current Medications Acetaminophen (Tylenol Extra Strength) 500 mg PO Q4H PRN PRN Reason: Pain Acetaminophen (Tylenol Extra Strength) 1,000 mg PO Q4H PRN PRN Reason: Pain Last Admin: 12/11/17 15:15 Dose: 1,000 mg Benzocaine/Menthol (Dermoplast Pain Relief 20%-0.5% [place]) 78 gm TOP ASDIRECTED PRN PRN Reason: Perineal Comfort Measure Bisacodyl (Dulcolax) 10 mg RECTAL .ONCE PRN PRN Reason: Constipation Docusate Sodium (Colace) 100 mg PO BID PRN PRN Reason: Constipation Last Admin: 12/11/17 10:00 Dose: 100 mg Emollient Ointment (Lansinoh Hpa) 0 gm TOP ASDIRECTED PRN PRN Reason: Sore Nipples Oxycodone HCl (Oxycodone) 5 mg PO Q2H PRN PRN Reason: Pain Last Admin: 12/11/17 20:58 Dose: 5 mg Witch Padmini (Tucks) 1 pad TOP ASDIRECTED PRN PRN Reason: comfort care Discontinued Medications Butorphanol Tartrate (Stadol) 1 mg IVPUSH Q1H PRN PRN Reason: Pain Carboprost Tromethamine (Hemabate Ds) 250 mcg IM ASDIRECTED PRN PRN Reason: Post Hemorrhage Fentanyl (Sublimaze) Confirm Administered Dose 300 mcg .ROUTE .STK-MED ONE Stop: 12/10/17 22:32 Last Admin: 12/11/17 10:37 Dose: Not Given Lactated Ringer's (Ringers, Lactated) 1,000 mls @ 150 mls/hr IV ASDIRECTED [facility] Last Admin: 12/10/17 23:30 Dose: 150 mls/hr Oxytocin/Sodium Chloride (Oxytocin 30 Unit/500 Ml-Ns) 30 unit in 500 mls @ 999 mls/hr IV TITRATE JO-ANN Last Admin: 12/11/17 02:34 Dose: 999 mls/hr Ropivacaine (Naropin 0.2%) Confirm Administered Dose 100 mls @ as directed .ROUTE .[employer] ONE Stop: 12/10/17 22:31 Last Admin: 12/11/17 10:37 Dose: Not Given Lidocaine HCl (Xylocaine 1%) 50 ml INJECT .ONCE PRN PRN Reason: Laceration repair Measles/Mumps/Rubella Vaccine Live (M-M-R Ii Vaccine) 0.5 ml SUBCUT .ONCE ONE Stop: 12/11/17 02:50 Methylergonovine Maleate (Methergine) 0.2 mg IM ASDIRECTED PRN PRN Reason: Post Hemorrhage Misoprostol (Cytotec) 200 mcg PO .ONCE PRN PRN Reason: Post Hemorrhage Nalbuphine HCl (Nubain) 10 mg IVPUSH Q1H PRN PRN Reason: Pain (severe 7-10) Ropivacaine (Naropin 0.2%) Confirm Administered Dose 20 ml .ROUTE .[employer] ONE Stop: 12/10/17 22:31 Last Admin: 12/11/17 10:36 Dose: Not Given Sodium Chloride (Saline Flush) 10 ml FLUSH ASDIRECTED PRN PRN Reason: Keep Vein Open Sodium Chloride (Saline Flush) 2.5 ml FLUSH ASDIRECTED PRN PRN Reason: Keep Vein Open Sterile Water (Sterile Water For Irrigation) 1,000 ml IRR ASDIRECTED PRN PRN Reason: delivery - Exam General: Reports: Alert, Oriented, Cooperative, No Acute Distress Lungs: Reports: Normal Respiratory Effort GI/Abdominal Exam: Soft, Non-Tender (Female) Exam: Vaginal Bleeding Rectal (Female) Exam: Deferred Back Exam: Reports: Full Range of Motion Extremities: Normal Range of Motion, Non-Tender, No Pedal Edema, Normal Capillary Refill Skin: Reports: Warm, Dry, Intact Wound/Incisions: Reports: Healing Well Neurological: Reports: No New Focal Deficit, Normal Gait, Normal Speech, Normal Tone Psy/Mental Status: Reports: Alert, Normal Affect, Normal Mood *Q Meaningful Use (DIS) - VTE *Q VTE Criteria *Q: - Stroke *Q Stroke Criteria *Q: - AMI *Q AMI Criteria *Q:
[2017-12-12] MEDS: Docusate Sodium 100 MG Cap PO PRN (08:08)
[2017-12-12 08:11] VITALS: BP 115/66
== END 2017-12-12 11:00 | disposition home or self-care (01) | DRG 775 ==
LOC: MW.OBCHECK 18:49 → MW.OB 18:50 → MW.OBCHECK 20:16 → OBSVTOIN 12-11 02:23 → MW.OB 12-11 05:30
PROVIDERS: ADMIT Obstetrics & Gynecology; ATTEND Obstetrics & Gynecology
PROC: 10E0XZZ Delivery of Products of Conception, External Approach (ICD-10-PCS; principal; 2017-12-11)
DX: O80 Encounter for full-term uncomplicated delivery (principal); Z3A.39 39 weeks gestation of pregnancy; Z37.0 Single live birth
CPT/HCPCS: 36415; 51702; 59025; 59409; 85027; 86850; 86900; 86901; A9270-GY; J2590; J2795; J3010; J7120

== ENCOUNTER 2018-05-26 21:29 | Emergency (ER) | payer MEDICAID ==
--- NOTE | 2018-05-26 21:36 | EDM.PDOC ---
ED HPI GENERAL MEDICAL PROBLEM - General Chief Complaint: Abdominal Pain Stated Complaint: STOMACH PAIN Time Seen by Provider: 05/26/18 21:35 Source of Information: Reports: Patient History Limitations: Reports: No Limitations - History of Present Illness INITIAL COMMENTS - FREE TEXT/NARRATIVE: HISTORY AND PHYSICAL: History of present illness: 27-year-old female presenting [facility] department with 2 days of abdominal pain with past medical history of cholelithiasis. Patient states that for the past 2 days she has had increasing abdominal pain which is mostly in the right upper quadrant but also involving the left lower quadrant and suprapubic area. She has had some associated subjective fever and chills and nausea without vomiting. She has had no history of abdominal surgery. At 6 months she was diagnosed with cholelithiasis and believes that it may be that. She has an appointment to be seen for further evaluation for that on June 14 but secondary to her increasing pain came to emergency room for further evaluation. Patient states that she did get a tubal ligation so there is no way she could be . Also reports some increased urgency with bowel movements and lower back pain. Denies any diarrhea, bloody stool, or dark tarry stools. Patient is breast-feeding at this time. On initial exam patient is tender to palpation in right upper quadrant as well as right lower quadrant and suprapubic area. Negative obturator and psoas and hop test. Abdomen soft and nonrigid, nondistended with mildly hypoactive sounds. Review of systems: As per history of present illness and below otherwise all systems reviewed and negative. Past medical history: As per history of present illness and as reviewed below otherwise noncontributory. Surgical history: As per history of present illness and as reviewed below otherwise noncontributory. Social history: No reported history of drug or alcohol abuse. Family history: As per history of present illness and as reviewed below otherwise noncontributory. Physical exam: HEENT: Atraumatic, normocephalic, pupils reactive, negative for conjunctival pallor or scleral icterus, mucous membranes moist, throat clear, neck supple, nontender, trachea midline. Lungs: Clear to auscultation, breath sounds equal bilaterally, chest nontender. Heart: S1S2, regular, negative for clicks, rubs, or JVD. Abdomen: Soft, right upper quadrant and right lower quadrant tenderness, nontender. Negative for masses or hepatosplenomegaly. Negative for costovertebral tenderness. Pelvis: Stable nontender. Genitourinary: Deferred. Rectal: Deferred. Extremities: Atraumatic, negative for cords or calf pain. Neurovascular unremarkable. Neuro: Awake, alert, oriented. Cranial nerves II through XII unremarkable. Cerebellum unremarkable. Motor and sensory unremarkable throughout. Exam nonfocal. Diagnostics: CBC, CMP, UA/UC, lipase, CT abdomen and pelvis Therapeutics: 1 L normal saline 1, Toradol 30 mg IV 1 Impression: Biliary colic Plan: CBC, CMP, UA, lipase were all unremarkable. CT the abdomen revealed cholelithiasis without cholecystitis and a contracted gallbladder with normal bile duct and normal appearing appendix. This was indicated with the patient. We did improve the patient's pain with Toradol 30 mg IV 1 as well as IV fluids. She was discharged in good condition with a prescription for ketorolac 10 mg daily 4-6 hours when necessary pain as well as instructions to call general surgery and follow-up with them for most likely cholecystectomy. Patient was instructed to return the emergency department if she has any new or worsening symptoms. Definitive disposition and diagnosis as appropriate pending reevaluation and review of above. Abdominal Pain Score (Numeric/FACES): 8 - Related Data Allergies Allergy/AdvReac Type Severity Reaction Status Date / Time ibuprofen [From Advil] Allergy Swelling Verified 11/16/17 23:07 Home Meds: Home Meds . [No Known Home Meds] 05/30/17 [History] Past Medical History - Past Health History Medical/Surgical History: Denies Medical/Surgical History HEENT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: None Cardiovascular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: None Respiratory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: None Gastrointestinal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: None Genitourinary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: None [employer]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: Other [employer] History: Musculoskeletal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: None Neurological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: None Psychiatric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: None Endocrine/Metabolic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: None Dermatologic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: None - Infectious Disease History Infectious Disease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: None - Past Surgical History HEENT Surgical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: None Female Surgical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: None Social & Family History - Family History Family Medical History: Noncontributory - Caffeine Use Caffeine Use: Reports: Coffee, Soda ED ROS GENERAL - Review of Systems Review Of Systems: ROS reveals no pertinent complaints other than HPI. ED EXAM, GENERAL - Physical Exam Exam: See Below Course - Vital Signs Last Recorded V/S: Last Vital Signs Temp 97.5 F 05/26/18 21:40 Pulse 74 05/26/18 21:40 Resp 18 05/26/18 21:40 BP 110/77 05/26/18 21:40 Pulse Ox 96 05/26/18 21:40 - Orders/Labs/Meds Orders: Active Orders 24 hr Category Date Time Status Abdomen Pelvis w Cont [CT] Stat Exams 05/26/18 21:49 Taken UA W/MICROSCOPIC [URIN] Stat Lab 05/26/18 22:40 Ordered Sodium Chloride 0.9% [Saline Flush] Med 05/26/18 21:49 Active 10 ml FLUSH ASDIRECTED PRN Sodium Chloride 0.9% [Saline Flush] Med 05/26/18 21:49 Active 2.5 ml FLUSH ASDIRECTED PRN Sodium Chloride 0.9% [Saline Flush] Med 05/26/18 21:49 Active 2.5 ml FLUSH ASDIRECTED PRN Saline Lock Insert [OM.PC] Stat Oth 05/26/18 21:49 Ordered Medication Orders Sodium Chloride (Saline Flush) 2.5 ml FLUSH ASDIRECTED PRN PRN Reason: Keep Vein Open Sodium Chloride (Saline Flush) 10 ml FLUSH ASDIRECTED PRN PRN Reason: Keep Vein Open Sodium Chloride (Saline Flush) 2.5 ml FLUSH ASDIRECTED PRN PRN Reason: Keep Vein Open Labs: Laboratory Tests 05/26/18 05/26/18 05/26/18 Range/Units 21:58 21:58 22:40 WBC 10.12 (4.0-11.0) K/uL RBC 4.44 (4.30-5.90) M/uL Hgb 13.0 (12.0-16.0) g/dL Hct 38.3 (36.0-46.0) % MCV 86.3 (80.0-98.0) fL MCH 29.3 (27.0-32.0) pg MCHC 33.9 (31.0-37.0) g/dL RDW Std Deviation 42.9 (28.0-62.0) fl RDW Coeff of Harry 14 (11.0-15.0) % Plt Count 250 (150-400) K/uL MPV 11.80 (7.40-12.00) fL Neut % (Auto) 58.4 (48.0-80.0) % Lymph % (Auto) 33.9 (16.0-40.0) % [place] % (Auto) 4.9 (0.0-15.0) % Eos % (Auto) 2.6 (0.0-7.0) % Baso % (Auto) 0.2 (0.0-1.5) % Neut # (Auto) 5.9 H (1.4-5.7) K/uL Lymph # (Auto) 3.4 H (0.6-2.4) K/uL [place] # (Auto) 0.5 (0.0-0.8) K/uL Eos # (Auto) 0.3 (0.0-0.7) K/uL Baso # (Auto) 0.0 (0.0-0.1) K/uL Nucleated RBC % 0.0 /100WBC Nucleated RBCs # 0 K/uL Sodium 141 (136-145) mmol/L Potassium 4.0 (3.5-5.1) mmol/L Chloride 105 (98-107) mmol/L Carbon Dioxide 26.3 (21.0-32.0) mmol/L BUN 14 (7.0-18.0) mg/dL Creatinine 0.7 (0.6-1.0) mg/dL Est Cr Clr Drug Dosing 98.09 mL/min Estimated GFR (MDRD) > 60.0 ml/min Glucose 110 H (74-106) mg/dL Calcium 8.9 (8.5-10.1) mg/dL Total Bilirubin 0.4 (0.2-1.0) mg/dL AST 14 L (15-37) IU/L ALT 13 L (14-63) IU/L Alkaline Phosphatase 108 (46-116) U/L Total Protein 7.3 (6.4-8.2) g/dL Albumin 4.2 (3.4-5.0) g/dL Globulin 3.1 (2.0-3.5) g/dL Albumin/Globulin Ratio 1.4 (1.3-2.8) Lipase 256 (73-393) U/L Urine Color YELLOW Urine Appearance CLEAR Urine pH 6.5 (5.0-8.0) Ur Specific [place] <= 1.005 (1.001-1.035) Urine Protein NEGATIVE (NEGATIVE) mg/dL Urine Glucose (UA) NEGATIVE (NEGATIVE) mg/dL Urine Ketones NEGATIVE (NEGATIVE) mg/dL Urine Occult Blood NEGATIVE (NEGATIVE) Urine Nitrite NEGATIVE (NEGATIVE) Urine Bilirubin NEGATIVE (NEGATIVE) Urine Urobilinogen 0.2 (<2.0) EU/dL Ur Leukocyte Esterase TRACE (NEGATIVE) Urine RBC 0-2 (0-2/HPF) Urine WBC 2-4 (0-5/HPF) Ur Epithelial Cells FEW (NONE-FEW) Urine Bacteria FEW (NEGATIVE) Urine Mucus FEW (NONE-MOD) Meds: Medications Generic Name Dose Route Start Last Admin Trade Name Freq PRN Reason Stop Dose Admin Sodium Chloride 2.5 ml 05/26/18 21:49 Saline Flush FLUSH ASDIRECTED PRN Keep Vein Open Sodium Chloride 10 ml 05/26/18 21:49 Saline Flush FLUSH ASDIRECTED PRN Keep Vein Open Sodium Chloride 2.5 ml 05/26/18 21:49 Saline Flush FLUSH ASDIRECTED PRN Keep Vein Open Discontinued Medications Generic Name Dose Route Start Last Admin Trade Name Freq PRN Reason Stop Dose Admin Sodium Chloride 1,000 mls @ 999 mls/hr 05/26/18 21:49 05/26/18 22:47 Normal Saline IV 05/26/18 22:49 999 mls/hr .Bolus ONE Administration Iopamidol 100 ml 05/26/18 22:28 05/26/18 22:31 Isovue Multipack-370 (76%) IVPUSH 05/26/18 22:29 100 ml ONETIME ONE Administration Ketorolac Tromethamine 30 mg 05/26/18 23:24 Toradol IVPUSH 05/26/18 23:25 ONETIME ONE Departure - Departure Time of Disposition: 23:30 Disposition: Home, Self-Care 01 Condition: Good Clinical Impression: Biliary colic - Discharge Information Referrals: PCP,None [Primary Care Provider] - Forms: ED Department Discharge Additional Instructions: My general discharge The following information is given to patients seen in the emergency department who are being discharged to home. This information is to outline your options for follow-up care. We provide all patients seen in our emergency department with a follow-up referral. The need for follow-up, as well as the timing and circumstances, are variable depending upon the specifics of your emergency department visit. If you don't have a primary care physician on staff, we will provide you with a referral. We always advise you to contact your personal physician following an emergency department visit to inform them of the circumstance of the visit and for follow-up with them and/or the need for any referrals to a consulting specialist. The emergency department will also refer you to a specialist when appropriate. This referral assures that you have the opportunity for follow-up care with a specialist. All of these measure are taken in an effort to provide you with optimal care, which includes your follow-up. Under all circumstances we always encourage you to contact your private physician who remains a resource for coordinating your care. When calling for follow-up care, please make the office aware that this follow-up is from your recent emergency room visit. If for any reason you are refused follow-up, please contact the [facility] Emergency Department at and asked to speak to the emergency department charge nurse. My General Surgery [facility] Specialty Care - General Surgery Professional Building [address] [place] [address], [address] [place] [address] Please call number above general surgery and tell them that you were seen in the emergency and wish they wish for follow-up for gallbladder stones and biliary colic. Take medications as prescribed. Follow-up with primary care provider. Return to emergency department if any new worsening symptoms - My Orders Last 24 Hours: My Active Orders 05/26/18 21:49 Abdomen Pelvis w Cont [CT] Stat Sodium Chloride 0.9% [Saline Flush] 10 ml FLUSH ASDIRECTED PRN Sodium Chloride 0.9% [Saline Flush] 2.5 ml FLUSH ASDIRECTED PRN Sodium Chloride 0.9% [Saline Flush] 2.5 ml FLUSH ASDIRECTED PRN Saline Lock Insert [OM.PC] Stat 05/26/18 22:40 UA W/MICROSCOPIC [URIN] Stat - Assessment/Plan Last 24 Hours: My Active Orders 05/26/18 21:49 Abdomen Pelvis w Cont [CT] Stat Sodium Chloride 0.9% [Saline Flush] 10 ml FLUSH ASDIRECTED PRN Sodium Chloride 0.9% [Saline Flush] 2.5 ml FLUSH ASDIRECTED PRN Sodium Chloride 0.9% [Saline Flush] 2.5 ml FLUSH ASDIRECTED PRN Saline Lock Insert [OM.PC] Stat 05/26/18 22:40 UA W/MICROSCOPIC [URIN] Stat
[2018-05-26] MEDS ORDERED: Sodium Chloride 0.9% 1,000 ML IV ONE (21:49)
[2018-05-26] MEDS ORDERED: Sodium Chloride 0.9% 2.5 ML Syringe FLUSH PRN ×2 (21:49)
[2018-05-26] MEDS ORDERED: Sodium Chloride 0.9% 10 ML Syringe FLUSH PRN (21:49)
[2018-05-26] MEDS ORDERED: Iopamidol 755 MG/ML 500 ML Multipack Bottle IVPUSH ONE (22:28)
[2018-05-26 22:29] LABS: CHLORIDE,CL 105 mmol/L (98-107); SODIUM,NA 141 mmol/L (136-145)
[2018-05-26] MEDS ORDERED: Ketorolac 30 MG/ML SDV IVPUSH ONE (23:24)
[2018-05-26 23:45] VITALS: BP 114/72
--- NOTE | 2018-05-29 17:47 | CT ---
EXAM DATE: 05/26/18 PATIENT'S AGE: 27 Patient: KELVIN SHAH Facility: [place], [place] Site . Site : 1990 Study: CT Abdomen/Pelvis W SAMMIE [id number]/6/2018 10:41:49 PM Ordering Physician: Hayder Cruz Final Report: INDICATION: Right upper and lower quadrant pain x2 days, chills, nausea, vomiting. TECHNIQUE: CT abdomen and pelvis acquired with IV contrast. 100 cc Isovue 370 COMPARISON: None FINDINGS: Lower chest: Unremarkable. Liver: Unremarkable. Spleen: Unremarkable. Pancreas: Unremarkable. Gallbladder and bile ducts: Cholelithiasis in a contracted gallbladder. Kidneys: Unremarkable. Adrenal glands: Unremarkable. GI tract: Colonic fecal retention. Appendix is normal. Vascular structures: Unremarkable. Lymph nodes: Unremarkable. Miscellaneous: Unremarkable. No free air or significant free fluid. Pelvic Organs: IUD identified in the endometrial canal. Bones: Unremarkable for age. IMPRESSION: Cholelithiasis in a contracted gallbladder. Grossly normal common bile duct. Normal-appearing appendix. Diffuse colonic fecal retention. Dictated by Nikolay Banda MD @ 05/26/2018 11:05:55 PM Dictated by: Nikolay Banda MD @ 05/26/2018 23:06:32 (Electronic Signature) Report Signed by Proxy. EMIR
== END 2018-05-26 23:42 | disposition home or self-care (01) ==
LOC: MW.ED 21:29
DX: K80.50 Calculus of bile duct without cholangitis or cholecystitis without obstruction (principal); Z88.6 Allergy status to analgesic agent
CPT/HCPCS: 36415; 74177; 80053; 81001; 83690; 85025; 96360; 99284; J7040; Q9967

== ENCOUNTER 2018-07-19 23:25 | Emergency (ER) | payer MEDICAID ==
[2018-07-19 23:40] VITALS: BP 109/76
--- NOTE | 2018-07-19 23:44 | EDM.PDOC ---
ED HPI GENERAL MEDICAL PROBLEM - General Chief Complaint: ENT Problem Stated Complaint: PT HAS SORE THROAT Time Seen by Provider: 07/19/18 23:44 Source of Information: Reports: Patient History Limitations: Reports: No Limitations - History of Present Illness INITIAL COMMENTS - FREE TEXT/NARRATIVE: HISTORY AND PHYSICAL: History of present illness: 27-year-old female presenting MRSA department with chief complaint of sore throat 1 day Patient states that she woke up this morning with a sore throat. States it is painful to swallow. She also reports associated fevers, chills, and some nausea. She is also having some right-sided ear pain and neck pain. This all started this morning. She denies any significant past medical history. She denies any abdominal pain, dysuria, hematuria, cough, shortness of breath, or other signs of systemic infection. She is breast-feeding and is allergic to ibuprofen. On exam tonsils bilaterally are enlarged and erythematous with exudate. Patient is tender to palpation along anterior cervical lymph nodes on right side as well as submandibular lymph nodes. Right tympanic membrane is bulging but nonerythematous Review of systems: As per history of present illness and below otherwise all systems reviewed and negative. Past medical history: As per history of present illness and as reviewed below otherwise noncontributory. Surgical history: As per history of present illness and as reviewed below otherwise noncontributory. Social history: No reported history of drug or alcohol abuse. Family history: As per history of present illness and as reviewed below otherwise noncontributory. Physical exam: See above H&P for abnormalities HEENT: Atraumatic, normocephalic, pupils reactive, negative for conjunctival pallor or scleral icterus, mucous membranes moist, neck supple, trachea midline. Lungs: Clear to auscultation, breath sounds equal bilaterally, chest nontender. Heart: S1S2, regular, negative for clicks, rubs, or JVD. Abdomen: Soft, nondistended, nontender. Negative for masses or hepatosplenomegaly. Negative for costovertebral tenderness. Pelvis: Stable nontender. Genitourinary: Deferred. Rectal: Deferred. Extremities: Atraumatic, negative for cords or calf pain. Neurovascular unremarkable. Neuro: Awake, alert, oriented. Cranial nerves II through XII unremarkable. Cerebellum unremarkable. Motor and sensory unremarkable throughout. Exam nonfocal. Diagnostics: Rapid strep Therapeutics: Penicillin V Impression: Strep tonsillitis Plan: []Rapid strep was negative however secondary to patient's symptoms and physical exam I am going to treat her for suspected strep tonsillitis. Gave the patient a prescription for penicillin V and instructed to follow-up with primary care provider and return to emergency department if she has any new or worsening symptoms. She can use Motrin and Tylenol for fever and pain. Definitive disposition and diagnosis as appropriate pending reevaluation and review of above. throat Pain Score (Numeric/FACES): 8 - Related Data Allergies Allergy/AdvReac Type Severity Reaction Status Date / Time ibuprofen [From Advil] Allergy Swelling Verified 07/19/18 23:27 Home Meds: Home Meds . 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 History: Musculoskeletal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: None Neurological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: None Psychiatric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: None Endocrine/Metabolic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: None Dermatologic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: None - Infectious Disease History Infectious Disease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: None - Past Surgical History HEENT Surgical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: None Female Surgical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: None Social & Family History - Family History Family Medical History: Noncontributory - Tobacco Use Smoking Status *Q: Never Smoker - Caffeine Use Caffeine Use: Reports: Coffee, Soda - Recreational Drug Use Recreational Drug Use: No ED ROS GENERAL - Review of Systems Review Of Systems: ROS reveals no pertinent complaints other than HPI. ED EXAM, GENERAL - Physical Exam Exam: See Below Course - Vital Signs Last Recorded V/S: Last Vital Signs Temp 97 F 07/19/18 23:25 Pulse 70 07/19/18 23:25 Resp 18 07/19/18 23:25 BP 109/76 07/19/18 23:25 Pulse Ox 97 07/19/18 23:25 - Orders/Labs/Meds Orders: Active Orders 24 hr Category Date Time Status STREP SCRN A RAPID W CULT CONF [RM] Stat Lab 07/19/18 23:43 Received Departure - Departure Time of Disposition: 00:01 Disposition: Home, Self-Care 01 Condition: Good Clinical Impression: Strep tonsillitis - Discharge Information Referrals: PCP,None [Primary Care Provider] - Forms: ED Department Discharge Additional Instructions: My general discharge The following information is given to patients seen in the emergency department who are being discharged to home. This information is to outline your options for follow-up care. We provide all patients seen in our emergency department with a follow-up referral. The need for follow-up, as well as the timing and circumstances, are variable depending upon the specifics of your emergency department visit. If you don't have a primary care physician on staff, we will provide you with a referral. We always advise you to contact your personal physician following an emergency department visit to inform them of the circumstance of the visit and for follow-up with them and/or the need for any referrals to a consulting specialist. The emergency department will also refer you to a specialist when appropriate. This referral assures that you have the opportunity for follow-up care with a specialist. All of these measure are taken in an effort to provide you with optimal care, which includes your follow-up. Under all circumstances we always encourage you to contact your private physician who remains a resource for coordinating your care. When calling for follow-up care, please make the office aware that this follow-up is from your recent emergency room visit. If for any reason you are refused follow-up, please contact the [facility] Emergency Department at and asked to speak to the emergency department charge nurse. [facility] [address] [place] [id number] Please follow-up with your primary care provider. Take medication as prescribed. Return to emergency department if you have any new or worsening symptoms. - My Orders Last 24 Hours: My Active Orders 07/19/18 23:43 STREP SCRN A RAPID W CULT CONF [RM] Stat - Assessment/Plan Last 24 Hours: My Active Orders 07/19/18 23:43 STREP SCRN A RAPID W CULT CONF [RM] Stat
== END 2018-07-20 00:14 | disposition home or self-care (01) ==
LOC: MW.ED 23:25
DX: J03.00 Acute streptococcal tonsillitis, unspecified (principal); Z88.6 Allergy status to analgesic agent
CPT/HCPCS: 87081; 87880-QW; 99283

== ENCOUNTER 2018-08-08 07:36 | Day surgery (SDC) | payer MEDICAID ==
[~2018-08-08 07:36] MED LIST: Lactated Ringers 1,000 ML IV SCH; Sodium Chloride 0.9% 10 ML Syringe FLUSH PRN; Sodium Chloride 0.9% 2.5 ML Syringe FLUSH PRN; ceFAZolin 2 GM in Premix Bag 1 BAG IV ONE
[2018-08-08] MEDS ORDERED: Bupivacaine 0.5% 10 ML SDV ONE (07:47)
[2018-08-08] MEDS ORDERED: Ondansetron 4 MG/2 ML SDV ONE (08:29)
[2018-08-08] MEDS ORDERED: Propofol 200 MG/20 ML SDV ONE (08:29)
[2018-08-08] MEDS ORDERED: Midazolam 1 MG/ML 2 ML SDV ONE (08:29)
[2018-08-08] MEDS ORDERED: fentaNYL 250 MCG/5 ML SDV ONE (08:30)
[2018-08-08] MEDS ORDERED: Scopolamine 1.5 MG Transdermal Patch TRDERM PRN (08:43)
--- NOTE | 2018-08-08 08:43 | PCM.PREANE ---
Preanesthetic Assessment - Anesthesia/Transfusion/Family Hx Anesthesia History: No Prior Anesthesia Family History of Anesthesia Reaction: No Transfusion History: No Prior Transfusion(s) Intubation History: Unknown - Review of Systems General: No Symptoms Pulmonary: No Symptoms Cardiovascular: No Symptoms Gastrointestinal: Abdominal Pain Neurological: No Symptoms Other: Reports: None - Physical Assessment Height: 1.6 m Weight: 53.977 kg ASA Class: 1 Mental Status: Alert & Oriented x3 Airway Class: Mallampati = 1 Dentition: Reports: Normal Dentition Thyro-Mental Finger Breadths: 3 Mouth Opening Finger Breadths: 3 ROM/Head Extension: Full Lungs: Clear to Auscultation, Normal Respiratory Effort Cardiovascular: Regular Rate, Regular Rhythm - Lab Values: Laboratory Last Values Urine HCG, Qual NEGATIVE (NEGATIVE) 08/08/18 08:05 - Allergies Allergies/Adverse Reactions: Allergies Allergy/AdvReac Type Severity Reaction Status Date / Time ibuprofen [From Advil] Allergy Swelling Verified 08/03/18 10:18 - Blood Blood Available: No - Anesthesia Plan Pre-Op Medication Ordered: None - Acknowledgements Anesthesia Type Planned: General Anesthesia Pt an Appropriate Candidate for the Planned Anesthesia: Yes Alternatives and Risks of Anesthesia Discussed w Pt/Guardian: Yes Pt/Guardian Understands and Agrees with Anesthesia Plan: Yes PreAnesthesia Questionnaire - Past Health History Medical/Surgical History: Denies Medical/Surgical History HEENT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: None Cardiovascular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: None Respiratory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: None Gastrointestinal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: None Other Gastrointestinal History: gall stones Genitourinary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: None 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: Musculoskeletal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: None Neurological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: Migraines (occasional) Psychiatric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: None Endocrine/Metabolic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: None Dermatologic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: None - Infectious Disease History Infectious Disease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: None - Past Surgical History Head Surgeries/Procedures: Reports: None HEENT Surgical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: None Female Surgical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: None - SUBSTANCE USE Smoking Status *Q: Never Smoker Recreational Drug Use History: No - HOME MEDS Home Medications: Home Meds Levonorgestrel [Mirena] 1 device VAG ONETIME 08/03/18 [History] - CURRENT (IN HOUSE) MEDS Current Meds: Current Medications Lactated Ringer's (Ringers, Lactated) 1,000 mls @ 125 mls/hr IV ASDIRECTED JO-ANN Sodium Chloride (Saline Flush) 10 ml FLUSH ASDIRECTED PRN PRN Reason: Keep Vein Open Sodium Chloride (Saline Flush) 2.5 ml FLUSH ASDIRECTED PRN PRN Reason: Keep Vein Open Discontinued Medications Bupivacaine HCl (Sensorcaine-Mpf 0.5%) Confirm Administered Dose 10 ml .ROUTE .STK-MED ONE Stop: 08/08/18 07:48 Fentanyl (Sublimaze) Confirm Administered Dose 250 mcg .ROUTE .STK-MED ONE Stop: 08/08/18 08:31 Cefazolin Sodium/Dextrose 2 gm (/ Premix) 50 mls @ 100 mls/hr IV ONETIME ONE Stop: 08/07/18 11:08 Lidocaine HCl (Xylocaine-Mpf 1%) Confirm Administered Dose 5 mls @ as directed .ROUTE .STK-MED ONE Stop: 08/08/18 08:31 Midazolam HCl (Versed 1 Mg/Ml) Confirm Administered Dose 2 mg .ROUTE .STK-MED ONE Stop: 08/08/18 08:30 Ondansetron HCl (Zofran) Confirm Administered Dose 4 mg .ROUTE .STK-MED ONE Stop: 08/08/18 08:30 Propofol (Diprivan 20 Ml) Confirm Administered Dose 200 mg .ROUTE .STK-MED ONE Stop: 08/08/18 08:30
[2018-08-08] MEDS ORDERED: Scopolamine 1.5 MG Transdermal Patch ONE (08:48)
[2018-08-08] MEDS ORDERED: Rocuronium 10 MG/ML 10 ML Syringe ONE (09:33)
[2018-08-08] MEDS ORDERED: Glycopyrrolate 0.2 MG/ML SDV ONE (10:24)
[2018-08-08] MEDS ORDERED: Neostigmine Methylsulfate 1 MG/ML 5 ML Syringe ONE (10:24)
--- NOTE | 2018-08-08 10:45 | PCM.OPNOTE ---
- General Post-Op/Procedure Note Date of Surgery/Procedure: 08/08/18 Operative Procedure(s): Laparoscopic cholecystectomy Findings: Small contracted gallbladder with palpable stones. Pre Op Diagnosis: Symptomatic cholelithiasis Post-Op Diagnosis: same Anesthesia Technique: General ET Tube Primary Surgeon: Melonie Uriarte Fluid Replacement, Intraop: 1,000 Output, Urine Amount: 400 EBL in mLs: 10 Condition: Good
[2018-08-08] MEDS ORDERED: Acetaminophen/oxyCODONE 325-5 MG Tab PO PRN (10:47)
[2018-08-08] MEDS ORDERED: fentaNYL 100 MCG/2 ML SDV IVPUSH PRN (11:04)
--- NOTE | 2018-08-08 11:19 | PCM.POSTAN ---
POST ANESTHESIA ASSESSMENT - MENTAL STATUS Mental Status: Alert, Oriented - RESPIRATORY Respiratory Status: Respiratory Rate WNL, Airway Patent, O2 Saturation Stable - CARDIOVASCULAR CV Status: Pulse Rate WNL, Blood Pressure Stable - GASTROINTESTINAL GI Status: No Symptoms - PAIN Pain Score: 3 - POST OP HYDRATION Hydration Status: Adequate & Stable
--- NOTE | 2018-08-08 12:58 | OR ---
SURGEON: ALFA CHIN MD DATE OF PROCEDURE: 08/08/2018 PREOPERATIVE DIAGNOSIS: Symptomatic cholelithiasis. POSTOPERATIVE DIAGNOSIS: Symptomatic cholelithiasis. PROCEDURE PERFORMED: Laparoscopic cholecystectomy. ANESTHESIA: General endotracheal anesthesia. FLUIDS: 1000 mL crystalloid. ESTIMATED BLOOD LOSS: 10 mL. URINE OUTPUT: 400 mL. FINDINGS: Small, contracted gallbladder containing palpable gallstones. COMPLICATIONS: None. INDICATIONS: The patient is a 27-year-old female, who developed cholelithiasis during her last . She has delivered her baby and has been having intermittent right upper quadrant pain. The decision was made to remove the gallbladder. We discussed the pathophysiology of biliary disease. The treatment for symptomatic cholelithiasis was removal of the gallbladder. We discussed both the laparoscopic and open approaches. Should I be unable to perform it safely laparoscopically, we will convert to open. We discussed the expected perioperative course as well as the risks including bleeding, infection, or damage to surrounding structures. The patient verbalized understanding and wishes to proceed. PROCEDURE IN DETAIL: The patient was brought into the OR and placed on the OR table in supine position. A time-out was completed verifying the patient's name, age, date of , allergies, and procedure to be performed. General endotracheal anesthesia was induced. The left arm was tucked to the patient's side and a Mcgee catheter placed. The abdomen was prepped and draped in usual standard fashion. I anesthetized the infraumbilical fold with 0.5% Marcaine plain. An 11 blade was used to make an incision along this fold. Cautery was used to dissect down the level of subcutaneous fat. Retractors were used to bluntly dissect down to the level of fascia. The fascia was elevated with Itz's and incised sharply with the scissors. Entry into the abdomen was palpated. A 12- mm Aaliyah trocar was placed in the abdomen and the abdomen insufflated. I inserted a 5 mm 30-degree scope into the abdomen and inspected the area underneath my initial trocar placement. There appeared to be no damage to surrounding structures. 5 mm trocars were placed under direct visualization in the following locations; one in the epigastric area, one in the right flank, and one 2 fingerbreadths below the right subcostal margin in the midclavicular line. The patient was placed into reverse Trendelenburg position and air-planed slightly to the left. The dome of the gallbladder was grasped with an atraumatic grasper and lifted cranially. This exposed the infundibulum. Using a combination of hook cautery, suction, and Sofia dissector, I was able to clear away the peritoneal attachments around the infundibulum. I identified the node of Calot and took this down. I could clearly see the cystic duct and artery. I dissected away the proximal one-third of the cystic plate. Once my critical view was achieved, I doubly clipped and ligated the cystic duct and artery. Electrocautery was then used to dissect the remainder of the gallbladder off the gallbladder fossa. The gallbladder was then placed in an EndoCatch bag and removed through the 12-mm port site. The 12-mm port was placed back in the abdomen. I inspected my operative field. It appeared to be hemostatic and there was no evidence of bile leakage. Given that there was no spillage of bile and that the area was completely dry, I did not irrigate. The 5-mm trocars were taken out under direct visualization and the abdomen allowed to desufflate. The 12-mm trocar was removed then as well. I closed the fascia at the infraumbilical port site with interrupted 0 Vicryl suture. The subcutaneous fat was closed with interrupted 3-0 Vicryl and the skin was closed with a running 4-0 Monocryl stitch. Interrupted 4-0 Monocryl sutures were used to close the 5 mm trocar sites. Steri-Strips and sterile dressings were applied. The patient tolerated the procedure well, taken to PACU in stable condition. SARBJIT PAEZ /[id number]
[2018-08-08 13:08] VITALS: BP 110/67
--- NOTE | 2018-08-08 13:10 | PCM48HPAN ---
Post Anesthesia Note - EVALUATION WITHIN 48HRS OF ANESTHETIC Vital Signs in Normal Range: Yes Patient Participated in Evaluation: Yes Respiratory Function Stable: Yes Airway Patent: Yes Cardiovascular Function Stable: Yes Hydration Status Stable: Yes Pain Control Satisfactory: Yes Nausea and Vomiting Control Satisfactory: Yes Mental Status Recovered: Yes Resp Rate: 13 - COMMENTS/OBSERVATIONS Free Text/Narrative:: no anesthesia problems
== END 2018-08-08 12:45 | disposition home or self-care (01) ==
LOC: MW.SDS 07:36
PROVIDERS: ATTEND Surgery
DX: K80.10 Calculus of gallbladder with chronic cholecystitis without obstruction (principal); G43.909 Migraine, unspecified, not intractable, without status migrainosus; Z88.8 Allergy status to other drugs, medicaments and biological substances; Z79.899 Other long term (current) drug therapy
CPT/HCPCS: 47562; 81025; A9270; J0690; J2250; J2405; J2704; J3010; J3490; J7120

== ENCOUNTER 2018-08-09 08:29 | Emergency (ER) | payer MEDICAID ==
[2018-08-09] MEDS ORDERED: Sodium Chloride 0.9% 1,000 ML IV ONE (08:40)
--- NOTE | 2018-08-09 08:41 | EDM.PDOC ---
ED HPI GENERAL MEDICAL PROBLEM - General Chief Complaint: Respiratory Problem Stated Complaint: post surgery pain Time Seen by Provider: 08/09/18 08:41 Source of Information: Reports: Patient - History of Present Illness INITIAL COMMENTS - FREE TEXT/NARRATIVE: HISTORY AND PHYSICAL: History of present illness: [Patient presents postop 24 hours prior for cholecystectomy She has 5 out of 10 right upper quadrant pain with deep inspiration, otherwise she is in no distress no fever nausea vomiting chills sweats no chest pain shortness breath headache dizziness palpitation no bowel or urine symptoms] Patient was provided Toradol and Reglan, she is not taking her pain medication provided by Dr. Avilez since last night, she did call Dr. Avilez who was had recommended she come into the emergency room lab is pending at this time the patient now desires to leave she does not desire to wait for her lab, passing flatness no bowel movement today Review of systems: As per history of present illness and below otherwise all systems reviewed and negative. Past medical history: As per history of present illness and as reviewed below otherwise noncontributory. Surgical history: As per history of present illness and as reviewed below otherwise noncontributory. Social history: No reported history of drug or alcohol abuse. Family history: As per history of present illness and as reviewed below otherwise noncontributory. Physical exam: HEENT: Atraumatic, normocephalic, pupils reactive, negative for conjunctival pallor or scleral icterus, mucous membranes moist, throat clear, neck supple, nontender, trachea midline. Lungs: Clear to auscultation, breath sounds equal bilaterally, chest nontender. Heart: S1S2, regular, negative for clicks, rubs, or JVD. Abdomen: Soft, nondistended, nontender. Negative for masses or hepatosplenomegaly. Negative for costovertebral tenderness. Surgical incisions noted consistent with laparoscopic cholecystectomy clean dry intact no redness warmth or exudate Pelvis: Stable nontender. Genitourinary: Deferred. Rectal: Deferred. Extremities: Atraumatic, negative for cords or calf pain. Neurovascular unremarkable. Neuro: Awake, alert, oriented. Cranial nerves II through XII unremarkable. Cerebellum unremarkable. Motor and sensory unremarkable throughout. Exam nonfocal. Diagnostics: [CBC CMP UA] Therapeutics: [1 L normal saline bolus Toradol 30 mg IReglan 10 mg IV Morphine was ordered however patient desires to leave and take her pain medicine at home jayden: [ postoperative abdominal pain Patient desires to leave prior to lab returning ] Definitive disposition and diagnosis as appropriate pending reevaluation and review of above. Both shoulders Pain Score (Numeric/FACES): 9 - Related Data Allergies Allergy/AdvReac Type Severity Reaction Status Date / Time ibuprofen [From Advil] Allergy Swelling Verified 08/09/18 08:32 Home Meds: Home Meds Hydrocodone/Acetaminophen [Hydrocodon-Acetaminophen 5-325] 2 tab PO DAILY [History] Past Medical History - Past Health History Medical/Surgical History: Denies Medical/Surgical History HEENT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: None Cardiovascular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: None Respiratory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: None Gastrointestinal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: Cholelithiasis Other Gastrointestinal History: gall stones Genitourinary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: None 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: Musculoskeletal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: None Neurological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: Migraines Psychiatric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: None Endocrine/Metabolic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: None Dermatologic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: None - Infectious Disease History Infectious Disease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: None - Past Surgical History Head Surgeries/Procedures: Reports: None HEENT Surgical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: None Female Surgical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: None Social & Family History - Family History Family Medical History: Noncontributory - Tobacco Use Smoking Status *Q: Never Smoker Second Hand Smoke Exposure: No - Caffeine Use Caffeine Use: Reports: None - Recreational Drug Use Recreational Drug Use: No ED ROS GENERAL - Review of Systems Review Of Systems: See Below ED EXAM, GENERAL - Physical Exam Exam: See Below Course - Vital Signs Last Recorded V/S: Last Vital Signs Temp 97.8 F 08/09/18 08:33 Pulse 65 08/09/18 08:33 Resp 18 08/09/18 08:33 BP 122/64 08/09/18 08:33 Pulse Ox 97 08/09/18 08:33 - Orders/Labs/Meds Orders: Active Orders 24 hr Category Date Time Status COMPREHENSIVE METABOLIC PN,CMP [CHEM] Stat Lab 08/09/18 08:56 Received LIPASE [CHEM] Stat Lab 08/09/18 08:56 Received UA W/MICROSCOPIC [URIN] Stat Lab 08/09/18 08:40 Ordered Sodium Chloride 0.9% [Normal Saline] 1,000 ml Med 08/09/18 08:40 Active IV STAT Medication Orders Sodium Chloride (Normal Saline) 1,000 mls @ 999 mls/hr IV STAT ONE Stop: 08/09/18 09:40 Last Admin: 08/09/18 08:56 Dose: 999 mls/hr Labs: Laboratory Tests 08/09/18 Range/Units 08:56 WBC 9.92 (4.0-11.0) K/uL RBC 4.25 L (4.30-5.90) M/uL Hgb 12.5 (12.0-16.0) g/dL Hct 38.0 (36.0-46.0) % MCV 89.4 (80.0-98.0) fL MCH 29.4 (27.0-32.0) pg MCHC 32.9 (31.0-37.0) g/dL RDW Std Deviation 44.3 (28.0-62.0) fl RDW Coeff of Harry 14 (11.0-15.0) % Plt Count 217 (150-400) K/uL MPV 12.00 (7.40-12.00) fL Neut % (Auto) 67.2 (48.0-80.0) % Lymph % (Auto) 26.6 (16.0-40.0) % [place] % (Auto) 5.1 (0.0-15.0) % Eos % (Auto) 1.1 (0.0-7.0) % Baso % (Auto) 0.0 (0.0-1.5) % Neut # (Auto) 6.7 H (1.4-5.7) K/uL Lymph # (Auto) 2.6 H (0.6-2.4) K/uL [place] # (Auto) 0.5 (0.0-0.8) K/uL Eos # (Auto) 0.1 (0.0-0.7) K/uL Baso # (Auto) 0.0 (0.0-0.1) K/uL Nucleated RBC % 0.0 /100WBC Nucleated RBCs # 0 K/uL Meds: Medications Generic Name Dose Route Start Last Admin Trade Name Freq PRN Reason Stop Dose Admin Sodium Chloride 1,000 mls @ 999 mls/hr 08/09/18 08:40 09/19/18 08:56 Normal Saline IV 08/09/18 09:40 999 mls/hr STAT ONE Administration Discontinued Medications Generic Name Dose Route Start Last Admin Trade Name Cindy PRN Reason Stop Dose Admin Ketorolac Tromethamine 30 mg 08/09/18 08:53 08/09/18 08:57 Toradol IVPUSH 08/09/18 08:54 30 mg ONETIME ONE Administration Metoclopramide HCl 10 mg 08/09/18 08:53 08/09/18 08:57 Reglan IV 08/09/18 08:54 10 mg ONETIME ONE Administration Morphine Sulfate 2 mg 08/09/18 09:17 Morphine IVPUSH 08/09/18 09:18 ONETIME ONE Departure - Departure Time of Disposition: 09:24 Disposition: Home, Self-Care 01 Condition: Good Clinical Impression: Abdominal pain - Discharge Information Referrals: PCP,None [Primary Care Provider] - Forms: ED Department Discharge Additional Instructions: The following information is given to patients seen in the emergency department who are being discharged to home. This information is to outline your options for follow-up care. We provide all patients seen in our emergency department with a follow-up referral. The need for follow-up, as well as the timing and circumstances, are variable depending upon the specifics of your emergency department visit. If you don't have a primary care physician on staff, we will provide you with a referral. We always advise you to contact your personal physician following an emergency department visit to inform them of the circumstance of the visit and for follow-up with them and/or the need for any referrals to a consulting specialist. The emergency department will also refer you to a specialist when appropriate. This referral assures that you have the opportunity for follow-up care with a specialist. All of these measure are taken in an effort to provide you with optimal care, which includes your follow-up. Under all circumstances we always encourage you to contact your private physician who remains a resource for coordinating your care. When calling for follow-up care, please make the office aware that this follow-up is from your recent emergency room visit. If for any reason you are refused follow-up, please contact the [facility] emergency department at and asked to speak to the emergency department charge nurse. - My Orders Last 24 Hours: My Active Orders 08/09/18 08:40 UA W/MICROSCOPIC [URIN] Stat Sodium Chloride 0.9% [Normal Saline] 1,000 ml IV STAT 08/09/18 08:56 COMPREHENSIVE METABOLIC PN,CMP [CHEM] Stat LIPASE [CHEM] Stat - Assessment/Plan Last 24 Hours: My Active Orders 08/09/18 08:40 UA W/MICROSCOPIC [URIN] Stat Sodium Chloride 0.9% [Normal Saline] 1,000 ml IV STAT 08/09/18 08:56 COMPREHENSIVE METABOLIC PN,CMP [CHEM] Stat LIPASE [CHEM] Stat
[2018-08-09] MEDS ORDERED: Metoclopramide 10 MG/2 ML SDV IV ONE (08:53)
[2018-08-09] MEDS ORDERED: Ketorolac 30 MG/ML SDV IVPUSH ONE (08:53)
[2018-08-09] MEDS ORDERED: Morphine 2 MG/ML Syringe IVPUSH ONE (09:17)
[2018-08-09 09:31] VITALS: BP 109/58
[2018-08-09 09:31] LABS: CHLORIDE,CL 106 mmol/L (98-107); SODIUM,NA 141 mmol/L (136-145)
== END 2018-08-09 09:28 | disposition home or self-care (01) ==
LOC: MW.ED 08:29
DX: G89.18 Other acute postprocedural pain (principal); R10.11 Right upper quadrant pain; M25.511 Pain in right shoulder; M25.512 Pain in left shoulder; Z90.49 Acquired absence of other specified parts of digestive tract; Z88.6 Allergy status to analgesic agent
CPT/HCPCS: 36415; 80053; 83690; 85025; 96361; 96374; 96375; 99285; J1885; J2765; J7040

== ENCOUNTER 2018-08-09 21:17 | Emergency (ER) | payer MEDICAID ==
--- NOTE | 2018-08-09 21:38 | EDM.PDOC ---
ED HPI GENERAL MEDICAL PROBLEM - General Chief Complaint: Wound Recheck Stated Complaint: HAVEING DISCHARGE FROM HER SURGERY YESTERDAY Time Seen by Provider: 08/09/18 21:30 - History of Present Illness INITIAL COMMENTS - FREE TEXT/NARRATIVE: HISTORY AND PHYSICAL: History of present illness: The patient is a 27-year-old female who underwent laparoscopic cholecystectomy yesterday with Dr. Uriarte and was actually seen here earlier this morning for postoperative pain and evaluated with labs and given IV medications. She said she felt better and went home and tonight she represented because her periumbilical dressing had blood on it and she was concerned. She's had no fevers chills vomiting or any new pain. She has not taken the surgical dressing off yet. The other incisions in the right upper quadrant are without any bleeding. Review of systems: As per history of present illness and below otherwise all systems reviewed and negative. Past medical history: As per history of present illness and as reviewed below otherwise noncontributory. Surgical history: As per history of present illness and as reviewed below otherwise noncontributory. Social history: No reported history of drug or alcohol abuse. Family history: As per history of present illness and as reviewed below otherwise noncontributory. Physical exam: General: Well-developed well-nourished female who is nontoxic and vital signs are reviewed by me. HEENT: Atraumatic, normocephalic, negative for conjunctival pallor or scleral icterus, mucous membranes moist, throat clear, neck supple, nontender, trachea midline. Lungs: Clear to auscultation, breath sounds equal bilaterally, chest nontender. Heart: S1S2, regular rate and rhythm no overt murmurs Abdomen: Soft, nondistended, nontender. No sounds are normoactive and the wounds at the right upper quadrant have dressings intact with dried blood. The dressing at the inferior umbilical area has some blood on it and I removed it. There was a small clot which was removed and with palpation I cannot express any blood and when the patient engages her abdominal muscles no new blood is expressed. There is minimal tenderness at the region. Negative for masses or hepatosplenomegaly. Negative for costovertebral tenderness. Pelvis: Stable nontender. Genitourinary: Deferred. Rectal: Deferred. Extremities: Atraumatic, negative for cords or calf pain. Neurovascular unremarkable. Neuro: Awake, alert, oriented. Cranial nerves II through XII unremarkable. Cerebellum unremarkable. Motor and sensory unremarkable throughout. Exam nonfocal. Diagnostics: [] Therapeutics: [] 2136: Case was discussed with Dr Uriarte who is comfortable with just redressing the wound and she will see her in clinic if he continues to have oozing and bleeding. This conversation was relayed to the patient. Impression: post operative wound evaluation/bleeding stable Definitive disposition and diagnosis as appropriate pending reevaluation and review of above. 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: Musculoskeletal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: None Neurological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: Migraines Psychiatric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: None Endocrine/Metabolic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: None Dermatologic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: None - Infectious Disease History Infectious Disease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: None - Past Surgical History Head Surgeries/Procedures: Reports: None HEENT Surgical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: None Female Surgical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: None Social & Family History - Family History Family Medical History: Noncontributory - Caffeine Use Caffeine Use: Reports: None ED ROS GENERAL - Review of Systems Review Of Systems: ROS reveals no pertinent complaints other than HPI. ED EXAM, GENERAL - Physical Exam Exam: See Below (see dictation) Course - Vital Signs Last Recorded V/S: Last Vital Signs Temp 36.4 C 08/09/18 21:17 Pulse 60 08/09/18 21:17 Resp 18 08/09/18 21:17 BP 129/63 08/09/18 21:17 Pulse Ox 97 08/09/18 21:17 Departure - Departure Time of Disposition: 21:41 Disposition: Home, Self-Care 01 Condition: Good Clinical Impression: Bleeding from wound - Discharge Information Referrals: PCP,None [Primary Care Provider] - Forms: ED Department Discharge Additional Instructions: The following information is given to patients seen in the emergency department who are being discharged to home. This information is to outline your options for follow-up care. We provide all patients seen in our emergency department with a follow-up referral. The need for follow-up, as well as the timing and circumstances, are variable depending upon the specifics of your emergency department visit. If you don't have a primary care physician on staff, we will provide you with a referral. We always advise you to contact your personal physician following an emergency department visit to inform them of the circumstance of the visit and for follow-up with them and/or the need for any referrals to a consulting specialist. The emergency department will also refer you to a specialist when appropriate. This referral assures that you have the opportunity for followup care with a specialist. All of these measure are taken in an effort to provide you with optimal care, which includes your followup. Under all circumstances we always encourage you to contact your private physician who remains a resource for coordinating your care. When calling for followup care, please make the office aware that this follow-up is from your recent emergency room visit. If for any reason you are refused follow-up, please contact the [facility] emergency department at and ask to speak to the emergency department charge nurse. [facility] [address] [place] [id number] Please continue with your home care as directed by Dr. Uriarte and contact her tomorrow in the clinic if the wound continues to bleed. Try to reduce stress on the area and return to ER as needed as discussed.
[2018-08-09 21:39] VITALS: BP 129/63
== END 2018-08-09 22:00 | disposition home or self-care (01) ==
LOC: MW.ED 21:17
DX: K91.840 Postprocedural hemorrhage of a digestive system organ or structure following a digestive system procedure (principal); Z88.6 Allergy status to analgesic agent
CPT/HCPCS: 99282

== ENCOUNTER 2018-12-12 10:13 | Emergency (ER) | payer MEDICAID ==
--- NOTE | 2018-12-12 11:30 | EDM.PDOC ---
ED HPI GENERAL MEDICAL PROBLEM - General Chief Complaint: Abdominal Pain Stated Complaint: ABDOMINAL PAIN Time Seen by Provider: 12/12/18 11:29 Source of Information: Reports: Patient - History of Present Illness INITIAL COMMENTS - FREE TEXT/NARRATIVE: HISTORY AND PHYSICAL: History of present illness: []Patient presents with dysuria and low abdominal pain 3 out of 10 nonradiating below the umbilicus consistent more with bladder spasm No fever nausea vomiting chills sweats Review of systems: As per history of present illness and below otherwise all systems reviewed and negative. Past medical history: As per history of present illness and as reviewed below otherwise noncontributory. Surgical history: As per history of present illness and as reviewed below otherwise noncontributory. Social history: No reported history of drug or alcohol abuse. Family history: As per history of present illness and as reviewed below otherwise noncontributory. Physical exam: HEENT: Atraumatic, normocephalic, pupils reactive, negative for conjunctival pallor or scleral icterus, mucous membranes moist, throat clear, neck supple, nontender, trachea midline. Lungs: Clear to auscultation, breath sounds equal bilaterally, chest nontender. Heart: S1S2, regular, negative for clicks, rubs, or JVD. Abdomen: Soft, nondistended, nontender. Negative for masses or hepatosplenomegaly. Negative for costovertebral tenderness. Pelvis: Stable nontender. Genitourinary: Deferred. Rectal: Deferred. Extremities: Atraumatic, negative for cords or calf pain. Neurovascular unremarkable. Neuro: Awake, alert, oriented. Cranial nerves II through XII unremarkable. Cerebellum unremarkable. Motor and sensory unremarkable throughout. Exam nonfocal. Diagnostics: [] CBC CMP UA hCG lipase Therapeutics: Bactrim double strength by mouth twice a day #20 no refill azo Impression: Letter spasm UTI Dysuria Definitive disposition and diagnosis as appropriate pending reevaluation and review of above. lower abdomen Pain Score (Numeric/FACES): 8 - Related Data Allergies Allergy/AdvReac Type Severity Reaction Status Date / Time ibuprofen [From Advil] Allergy Swelling Verified 12/12/18 10:20 Home Meds: Home Meds . 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: Musculoskeletal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: None Neurological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: Migraines Psychiatric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: None Endocrine/Metabolic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: None Hematologic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: None Immunologic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: None Oncologic (Cancer)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: None Dermatologic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: None - Infectious Disease History Infectious Disease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: None - Past Surgical History Head Surgeries/Procedures: Reports: None HEENT Surgical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: None Cardiovascular Surgical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: None Respiratory Surgical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: None GI Surgical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: None Female Surgical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: None Endocrine Surgical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: None Neurological Surgical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: None Musculoskeletal Surgical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: None Oncologic Surgical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: None Dermatological Surgical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: None Social & Family History - Family History Family Medical History: Noncontributory - Tobacco Use Smoking Status *Q: Never Smoker Second Hand Smoke Exposure: No - Caffeine Use Caffeine Use: Reports: Coffee - Recreational Drug Use Recreational Drug Use: No ED ROS GENERAL - Review of Systems Review Of Systems: See Below ED EXAM, GENERAL - Physical Exam Exam: See Below Course - Vital Signs Last Recorded V/S: Last Vital Signs Temp 96.3 F 12/12/18 10:20 Pulse 73 12/12/18 10:20 Resp 18 12/12/18 10:20 BP 120/70 12/12/18 10:20 Pulse Ox 97 12/12/18 10:20 - Orders/Labs/Meds Orders: Active Orders 24 hr Category Date Time Status CULTURE URINE [RM] Stat Lab 12/12/18 11:28 Received Labs: Laboratory Tests 12/12/18 12/12/18 12/12/18 Range/Units 11:28 11:28 11:33 WBC 13.49 H (4.0-11.0) K/uL RBC 4.55 (4.30-5.90) M/uL Hgb 13.5 (12.0-16.0) g/dL Hct 40.5 (36.0-46.0) % MCV 89.0 (80.0-98.0) fL MCH 29.7 (27.0-32.0) pg MCHC 33.3 (31.0-37.0) g/dL RDW Std Deviation 43.1 (28.0-62.0) fl RDW Coeff of Harry 13 (11.0-15.0) % Plt Count 245 (150-400) K/uL MPV 11.20 (7.40-12.00) fL Neut % (Auto) 78.8 (48.0-80.0) % Lymph % (Auto) 17.3 (16.0-40.0) % [place] % (Auto) 2.8 (0.0-15.0) % Eos % (Auto) 1.0 (0.0-7.0) % Baso % (Auto) 0.1 (0.0-1.5) % Neut # (Auto) 10.6 H (1.4-5.7) K/uL Lymph # (Auto) 2.3 (0.6-2.4) K/uL [place] # (Auto) 0.4 (0.0-0.8) K/uL Eos # (Auto) 0.1 (0.0-0.7) K/uL Baso # (Auto) 0.0 (0.0-0.1) K/uL Nucleated RBC % 0.0 /100WBC Nucleated RBCs # 0 K/uL Sodium (136-145) mmol/L Potassium (3.5-5.1) mmol/L Chloride (98-107) mmol/L Carbon Dioxide (21.0-32.0) mmol/L BUN (7.0-18.0) mg/dL Creatinine (0.6-1.0) mg/dL Est Cr Clr Drug Dosing mL/min Estimated GFR (MDRD) ml/min Glucose (74-106) mg/dL Calcium (8.5-10.1) mg/dL Total Bilirubin (0.2-1.0) mg/dL AST (15-37) IU/L ALT (14-63) IU/L Alkaline Phosphatase (46-116) U/L Total Protein (6.4-8.2) g/dL Albumin (3.4-5.0) g/dL Globulin (2.6-4.0) g/dL Albumin/Globulin Ratio (0.9-1.6) Lipase (73-393) U/L Urine Color YELLOW Urine Appearance SLT CLOUDY Urine pH 6.0 (5.0-8.0) Ur Specific [place] 1.025 (1.001-1.035) Urine Protein NEGATIVE (NEGATIVE) mg/dL Urine Glucose (UA) NEGATIVE (NEGATIVE) mg/dL Urine Ketones NEGATIVE (NEGATIVE) mg/dL Urine Occult Blood TRACE-INTACT H (NEGATIVE) Urine Nitrite NEGATIVE (NEGATIVE) Urine Bilirubin NEGATIVE (NEGATIVE) Urine Urobilinogen 0.2 (<2.0) EU/dL Ur Leukocyte Esterase MODERATE H (NEGATIVE) Urine RBC 1-2 (0-2/HPF) Urine WBC 15-20 (0-5/HPF) Ur Epithelial Cells OCCASIONAL (NONE-FEW) Urine Bacteria FEW (NEGATIVE) Urine HCG, Qual NEGATIVE (NEGATIVE) 12/12/18 Range/Units 11:33 WBC (4.0-11.0) K/uL RBC (4.30-5.90) M/uL Hgb (12.0-16.0) g/dL Hct (36.0-46.0) % MCV (80.0-98.0) fL MCH (27.0-32.0) pg MCHC (31.0-37.0) g/dL RDW Std Deviation (28.0-62.0) fl RDW Coeff of Harry (11.0-15.0) % Plt Count (150-400) K/uL MPV (7.40-12.00) fL Neut % (Auto) (48.0-80.0) % Lymph % (Auto) (16.0-40.0) % [place] % (Auto) (0.0-15.0) % Eos % (Auto) (0.0-7.0) % Baso % (Auto) (0.0-1.5) % Neut # (Auto) (1.4-5.7) K/uL Lymph # (Auto) (0.6-2.4) K/uL [place] # (Auto) (0.0-0.8) K/uL Eos # (Auto) (0.0-0.7) K/uL Baso # (Auto) (0.0-0.1) K/uL Nucleated RBC % /100WBC Nucleated RBCs # K/uL Sodium 139 (136-145) mmol/L Potassium 3.9 (3.5-5.1) mmol/L Chloride 106 (98-107) mmol/L Carbon Dioxide 25.4 (21.0-32.0) mmol/L BUN 10 (7.0-18.0) mg/dL Creatinine 0.6 (0.6-1.0) mg/dL Est Cr Clr Drug Dosing 113.41 mL/min Estimated GFR (MDRD) > 60.0 ml/min Glucose 109 H (74-106) mg/dL Calcium 9.3 (8.5-10.1) mg/dL Total Bilirubin 0.4 (0.2-1.0) mg/dL AST 14 L (15-37) IU/L ALT 10 L (14-63) IU/L Alkaline Phosphatase 114 (46-116) U/L Total Protein 7.7 (6.4-8.2) g/dL Albumin 4.0 (3.4-5.0) g/dL Globulin 3.7 (2.6-4.0) g/dL Albumin/Globulin Ratio 1.1 (0.9-1.6) Lipase 142 (73-393) U/L Urine Color Urine Appearance Urine pH (5.0-8.0) Ur Specific [place] (1.001-1.035) Urine Protein (NEGATIVE) mg/dL Urine Glucose (UA) (NEGATIVE) mg/dL Urine Ketones (NEGATIVE) mg/dL Urine Occult Blood (NEGATIVE) Urine Nitrite (NEGATIVE) Urine Bilirubin (NEGATIVE) Urine Urobilinogen (<2.0) EU/dL Ur Leukocyte Esterase (NEGATIVE) Urine RBC (0-2/HPF) Urine WBC (0-5/HPF) Ur Epithelial Cells (NONE-FEW) Urine Bacteria (NEGATIVE) Urine HCG, Qual (NEGATIVE) Departure - Departure Time of Disposition: 12:24 Disposition: Home, Self-Care 01 Condition: Good Clinical Impression: UTI (urinary tract infection) - Discharge Information Referrals: PCP,None [Primary Care Provider] - Forms: ED Department Discharge Additional Instructions: The following information is given to patients seen in the emergency department who are being discharged to home. This information is to outline your options for follow-up care. We provide all patients seen in our emergency department with a follow-up referral. The need for follow-up, as well as the timing and circumstances, are variable depending upon the specifics of your emergency department visit. If you don't have a primary care physician on staff, we will provide you with a referral. We always advise you to contact your personal physician following an emergency department visit to inform them of the circumstance of the visit and for follow-up with them and/or the need for any referrals to a consulting specialist. The emergency department will also refer you to a specialist when appropriate. This referral assures that you have the opportunity for follow-up care with a specialist. All of these measure are taken in an effort to provide you with optimal care, which includes your follow-up. Under all circumstances we always encourage you to contact your private physician who remains a resource for coordinating your care. When calling for follow-up care, please make the office aware that this follow-up is from your recent emergency room visit. If for any reason you are refused follow-up, please contact the [facility] emergency department at and asked to speak to the emergency department charge nurse. - My Orders Last 24 Hours: My Active Orders 12/12/18 11:28 CULTURE URINE [RM] Stat - Assessment/Plan Last 24 Hours: My Active Orders 12/12/18 11:28 CULTURE URINE [RM] Stat
[2018-12-12 12:02] LABS: CHLORIDE,CL 106 mmol/L (98-107); SODIUM,NA 139 mmol/L (136-145)
[2018-12-12 12:39] VITALS: BP 110/70
== END 2018-12-12 12:36 | disposition home or self-care (01) ==
LOC: EEVIPCON 10:13 → MW.ED 10:13
DX: N39.0 Urinary tract infection, site not specified (principal); N32.89 Other specified disorders of bladder; Z88.6 Allergy status to analgesic agent
CPT/HCPCS: 36415; 80053; 81001; 81025; 83690; 85025; 87086; 87088; 87186; 99283

== ENCOUNTER 2020-04-07 00:08 | Inpatient (IN) | payer MEDICAID ==
[2020-04-07] MEDS ORDERED: Terbutaline 1 MG/ML SDV SUBCUT PRN (00:38)
[2020-04-07] MEDS ORDERED: Carboprost Tromethamine 250 MCG/1 ML Amp IM PRN (00:38)
[2020-04-07] MEDS ORDERED: Ondansetron 4 MG/2 ML SDV IVPUSH PRN (00:38)
[2020-04-07] MEDS ORDERED: Misoprostol 200 MCG Tab PO PRN (00:38)
[2020-04-07] MEDS ORDERED: Tranexamic Acid 1,000 MG in Sodium Chloride 0.9% 100 ML IV PRN (00:38)
[2020-04-07] MEDS ORDERED: Sodium Chloride 0.9% 10 ML Syringe FLUSH PRN (00:38)
[2020-04-07] MEDS ORDERED: Sodium Chloride 0.9% 10 ML SDV IV PRN (00:38)
[2020-04-07] MEDS ORDERED: Lidocaine 1% 50 ML MDV INJECT PRN (00:38)
[2020-04-07] MEDS ORDERED: Water For Irrigation,Sterile 1,000 ML Container IRR PRN (00:38)
[2020-04-07] MEDS ORDERED: Nalbuphine 10 MG/1 ML Vial IVPUSH PRN (00:38)
[2020-04-07] MEDS ORDERED: Methylergonovine 0.2 MG/1 ML Amp IM PRN (00:38)
[2020-04-07] MEDS ORDERED: Sodium Chloride 0.9% 2.5 ML Syringe FLUSH PRN (00:38)
[2020-04-07] MEDS ORDERED: Oxytocin/0.9 % Sodium Chloride 30 UNIT/500 ML BAG IV SCH ×2 (00:45)
[2020-04-07] MEDS ORDERED: hydrOXYzine Pamoate 25 MG Cap PO PRN (00:46)
[2020-04-07] MEDS ORDERED: Misoprostol 25 MCG (1/4 of 100 MCG) Tab PO PRN (01:00)
[2020-04-07] MEDS ORDERED: Misoprostol 25 MCG (1/4 of 100 MCG) Tab VAG PRN (01:00)
[2020-04-07] MEDS: Misoprostol 25 MCG (1/4 of 100 MCG) Tab VAG PRN ×2 (07:15→11:20)
[2020-04-07] MEDS: Misoprostol 25 MCG (1/4 of 100 MCG) Tab PO PRN ×2 (07:16→11:20)
--- NOTE | 2020-04-07 08:19 | PCM.LDHP ---
L&D History of Present Illness - General Date of Service: 04/07/20 Admit Problem/Dx: Patient Status Order with Admit Dx/Problem 04/07/20 00:39 Patient Status [ADT] Routine Admission Diagnosis/Problem Admission Diagnosis/Problem Source of Information: Patient History Limitations: Reports: No Limitations - Related Data Allergies/Adverse Reactions: Allergies Allergy/AdvReac Type Severity Reaction Status Date / Time ibuprofen [From Advil] Allergy Swelling Verified 12/12/18 10:20 Home Medications: Home Meds Acetaminophen [Tylenol] 325 mg PO Q4HR PRN 04/07/20 [History] Calcium Carbonate [Tums Extra Strength] 750 mg PO DAILY 04/07/20 [History] Vits #93/Iron Fum/FA [ Formula Tablet] 1 each PO DAILY [History] Past Medical History - Past Health History Medical/Surgical History: Denies Medical/Surgical History HEENT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: None Cardiovascular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: None Respiratory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: None Gastrointestinal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: Cholelithiasis, Other (See Below) Other Gastrointestinal History: gall stones, 2018. 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: Musculoskeletal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: None Neurological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: Migraines Psychiatric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: None Endocrine/Metabolic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: None Hematologic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: None Immunologic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: None Oncologic (Cancer)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: None Dermatologic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: None - Infectious Disease History Infectious Disease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: None - Past Surgical History Head Surgeries/Procedures: Reports: None HEENT Surgical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: None Cardiovascular Surgical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: None Respiratory Surgical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: None GI Surgical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: Cholecystectomy, Other (See Below) Other GI Surgeries/Procedures: cholecystectomy, 2018. Female Surgical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: None Endocrine Surgical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: None Neurological Surgical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: None Musculoskeletal Surgical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: None Oncologic Surgical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: None Dermatological Surgical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: None Social & Family History - Family History Family Medical History: Noncontributory - Tobacco Use Smoking Status *Q: Never Smoker Second Hand Smoke Exposure: No - Caffeine Use Caffeine Use: Reports: Coffee, Energy Drinks Caffeine Use Comment: cup of coffee or a red bull, once or twice a week - Recreational Drug Use Recreational Drug Use: No H&P Review of Systems - Review of Systems: Review Of Systems: See Below General: Reports: No Symptoms HEENT: Reports: No Symptoms Pulmonary: Reports: No Symptoms Cardiovascular: Reports: No Symptoms Gastrointestinal: Reports: No Symptoms Genitourinary: Reports: No Symptoms Musculoskeletal: Reports: No Symptoms Skin: Reports: No Symptoms Psychiatric: Reports: No Symptoms Neurological: Reports: No Symptoms Hematologic/Lymphatic: Reports: No Symptoms Immunologic: Reports: No Symptoms L&D Exam - Exam Exam: See Below - Vital Signs Weight: 159 lb - Yanes Score Yanes Score Cervix Position: Midposition Yanes Score Consistency: Medium Yanes Score Effacement: 51-70% Yanes Score Dilation: 1-2 cm Yanes Score 's Station: -2 Yanes Score Total: 6 - Exam General: Alert, Oriented, Cooperative Neck: Supple, Trachea Midline Lungs: Normal Respiratory Effort Cardiovascular: Regular Rate, Regular Rhythm GI/Abdominal Exam: Soft, Non-Tender Rectal Exam: Deferred Genitourinary: Deferred Back Exam: Normal Inspection, Full Range of Motion Extremities: Normal Inspection, Normal Range of Motion, Non-Tender, Normal Capillary Refill Skin: Warm, Dry, Intact Neurological: Strength Equal Bilateral, Normal Gait, Normal Speech, Normal Tone , Sensation Intact Psychiatric: Alert, Normal Affect, Normal Mood - Patient Data Lab Results Last 24 hrs: Laboratory Results - last 24 hr 04/07/20 04/07/20 Range/Units 01:31 01:31 WBC 15.76 H (4.0-11.0) K/uL RBC 2.67 L (4.30-5.90) M/uL Hgb 6.8 L (12.0-16.0) g/dL Hct 22.3 L (36.0-46.0) % MCV 83.5 (80.0-98.0) fL MCH 25.5 L (27.0-32.0) pg MCHC 30.5 L (31.0-37.0) g/dL RDW Std Deviation 46.8 (28.0-62.0) fl RDW Coeff of Harry 16 H (11.0-15.0) % Plt Count 330 (150-400) K/uL Nucleated RBC % 0.0 /100WBC Nucleated RBCs # 0 K/uL Blood Type O POSITIVE Antibody Screen NEGATIVE Result Diagrams: 04/07/20 01:31 - Problem List (1) Supervision of normal IUP (intrauterine ) in multigravida SNOMED Code(s): 356035918, 822281351, 898172401 ICD Code: Z34.80 - ENCOUNTER FOR SUPRVSN OF NORMAL , UNSP TRIMESTER Status: Acute Priority: High Current Visit: Yes Qualifiers: Trimester: third trimester Qualified Code(s): Z34.83 - Encounter for supervision of other normal , third trimester Problem List Initiated/Reviewed/Updated: Yes Orders Last 24hrs: Active Orders 24 hr Category Date Time Status Patient Status [ADT] Routine ADT 04/07/20 00:39 Active Bedrest Bathroom Privileges [RC] ASDIRECTED Care 04/07/20 00:39 Active Communication Order [RC] ASDIRECTED Care 04/07/20 00:39 Active Communication Order [RC] ASDIRECTED Care 04/07/20 00:39 Active Communication Order [RC] ASDIRECTED Care 04/07/20 00:39 Active Heart Tones [RC] CONTINUOUS Care 04/07/20 00:39 Active Non Stress Test [RC] PER UNIT ROUTINE Care 04/07/20 00:39 Active May Shower [RC] ASDIRECTED Care 04/07/20 00:39 Active Notify Provider [RC] PRN Care 04/07/20 00:39 Active Notify Provider [RC] PRN Care 04/07/20 00:39 Active Notify Provider [RC] PRN Care 04/07/20 00:39 Active Notify Provider [RC] STAT Care 04/07/20 00:39 Active Oxygen Therapy [RC] ASDIRECTED Care 04/07/20 00:39 Active Peripheral IV Care [RC] PRN Care 04/07/20 00:38 Active Vaginal Exam [RC] PRN Care 04/07/20 00:39 Active Vaginal Exam [RC] PRN Care 04/07/20 00:39 Active Vital Signs [RC] PER UNIT ROUTINE Care 04/07/20 00:39 Active Vital Signs [RC] PER UNIT ROUTINE Care 04/07/20 00:39 Active Regular Diet [DIET] Diet 04/07/20 Breakfast Active RPR (SYPHILIS SERO) W/ RFLX [REF] Routine Lab 04/07/20 01:31 Received Carboprost Tromethamine [Hemabate DS] Med 04/07/20 00:38 Active 250 mcg IM ASDIRECTED PRN Lactated Ringers [Ringers, Lactated] 1,000 ml Med 04/07/20 00:45 Active IV ASDIRECTED Lidocaine 1% [Xylocaine 1%] Med 04/07/20 00:38 Active 50 ml INJECT ONETIME PRN Methylergonovine [Methergine] Med 04/07/20 00:38 Active 0.2 mg IM ASDIRECTED PRN Nalbuphine [Nubain] Med 04/07/20 00:38 Active 10 mg IVPUSH Q1H PRN Ondansetron [Zofran] Med 04/07/20 00:38 Active 4 mg IVPUSH Q6H PRN Oxytocin/0.9 % Sodium Chloride [Oxytocin 30 Unit/500 ML Med 04/07/20 00:45 Active -NS] 30 unit in 500 ml IV TITRATE Oxytocin/0.9 % Sodium Chloride [Oxytocin 30 Unit/500 ML Med 04/07/20 00:45 Active -NS] 30 unit in 500 ml IV TITRATE Sodium Chloride 0.9% [Normal Saline] Med 04/07/20 00:38 Active 10 ml IV ASDIRECTED PRN Sodium Chloride 0.9% [Saline Flush] Med 04/07/20 00:38 Active 10 ml FLUSH ASDIRECTED PRN Sodium Chloride 0.9% [Saline Flush] Med 04/07/20 00:38 Active 2.5 ml FLUSH ASDIRECTED PRN Terbutaline [Brethine] Med 04/07/20 00:38 Active 0.25 mg SUBCUT ASDIRECTED PRN Tranexamic Acid [Cyklokapron] 1,000 mg Med 04/07/20 00:38 Active Sodium Chloride 0.9% [Normal Saline] 100 ml IV ONETIME Water For Irrigation,Sterile [Sterile Water for Med 04/07/20 00:38 Active Irrigation] 1,000 ml IRR ASDIRECTED PRN hydrOXYzine pamoate [Vistaril] Med 04/07/20 00:46 Active 50 mg PO BEDTIME PRN miSOPROStoL [Cytotec] Med 04/07/20 00:38 Active 200 mcg PO ONETIME PRN miSOPROStoL [Cytotec] Med 04/07/20 01:00 Active 25 mcg PO ONETIME PRN miSOPROStoL [Cytotec] Med 04/07/20 01:00 Active 25 mcg PO Q4H PRN miSOPROStoL [Cytotec] Med 04/07/20 01:00 Active 25 mcg VAG ONETIME PRN miSOPROStoL [Cytotec] Med 04/07/20 05:00 Active 25 mcg VAG Q4H PRN Scalp Electrode [WOMSER] Per Unit Routine Oth 04/07/20 00:39 Ordered Medication Administration Instruction [OM.PC] Q3H Oth 04/07/20 00:45 Ordered Peripheral IV Insertion Adult [OM.PC] Routine Oth 04/07/20 00:39 Ordered Resuscitation Status Routine Resus Stat 04/07/20 00:38 Ordered Medication Orders Carboprost Tromethamine (Hemabate Ds) 250 mcg IM ASDIRECTED PRN PRN Reason: Post Hemorrhage Hydroxyzine Pamoate (Vistaril) 50 mg PO BEDTIME PRN PRN Reason: Sleep Lactated Ringer's (Ringers, Lactated) 1,000 mls @ 150 mls/hr IV ASDIRECTED JO-ANN Oxytocin/Sodium Chloride (Oxytocin 30 Unit/500 Ml-Ns) 30 unit in 500 mls @ 2 mls/hr IV TITRATE JO-ANN; Protocol Oxytocin/Sodium Chloride (Oxytocin 30 Unit/500 Ml-Ns) 30 unit in 500 mls @ 999 mls/hr IV TITRATE JO-ANN Tranexamic Acid 1,000 mg/ (Sodium Chloride) 110 mls @ 660 mls/hr IV ONETIME PRN PRN Reason: Bleeding Lidocaine HCl (Xylocaine 1%) 50 ml INJECT ONETIME PRN PRN Reason: Laceration repair Methylergonovine Maleate (Methergine) 0.2 mg IM ASDIRECTED PRN PRN Reason: Post Hemorrhage Misoprostol (Cytotec) 25 mcg VAG ONETIME PRN PRN Reason: Cervical Ripening Last Admin: 04/07/20 03:04 Dose: 25 mcg Misoprostol (Cytotec) 25 mcg VAG Q4H PRN PRN Reason: Cervical Ripening Last Admin: 04/07/20 07:15 Dose: 25 mcg Misoprostol (Cytotec) 200 mcg PO ONETIME PRN PRN Reason: Post Hemorrhage Misoprostol (Cytotec) 25 mcg PO ONETIME PRN PRN Reason: Cervical Ripening Last Admin: 05/18/20 03:04 Dose: 25 mcg Misoprostol (Cytotec) 25 mcg PO Q4H PRN PRN Reason: Cervical Ripening Last Admin: 04/07/20 07:16 Dose: 25 mcg Nalbuphine HCl (Nubain) 10 mg IVPUSH Q1H PRN PRN Reason: Pain (severe 7-10) Ondansetron HCl (Zofran) 4 mg IVPUSH Q6H PRN PRN Reason: Nausea/Vomiting Sodium Chloride (Saline Flush) 10 ml FLUSH ASDIRECTED PRN PRN Reason: Keep Vein Open Sodium Chloride (Saline Flush) 2.5 ml FLUSH ASDIRECTED PRN PRN Reason: Keep Vein Open Sodium Chloride (Normal Saline) 10 ml IV ASDIRECTED PRN PRN Reason: IV Use Sterile Water (Sterile Water For Irrigation) 1,000 ml IRR ASDIRECTED PRN PRN Reason: delivery Terbutaline Sulfate (Brethine) 0.25 mg SUBCUT ASDIRECTED PRN PRN Reason: Tacysystole Assessment/Plan Comment:: Admit: A: at 39 weeks; O+, Rubella immune, GBS negative; SUE: 04/14/20 P: Admit; induction of labor; cytotec to pitocin; anticipate ; epidural PRN ; Dr. Ng updated.
[2020-04-07] MEDS ORDERED: Oxytocin/0.9 % Sodium Chloride 30 UNIT/500 ML BAG ONE (08:48)
[2020-04-07] MEDS: Lactated Ringers 1,000 ML IV SCH ×2 (14:05→15:16)
[2020-04-07] MEDS ORDERED: fentaNYL 100 MCG/2 ML SDV ONE (14:56)
[2020-04-07] MEDS ORDERED: Ropivacaine 0.2% PF 2 MG/ML 20 ML SDV ONE (14:56)
--- NOTE | 2020-04-07 15:15 | PCM.PREANE ---
Preanesthetic Assessment - Anesthesia/Transfusion/Family Hx Anesthesia History: Prior Anesthesia Without Reaction Family History of Anesthesia Reaction: No Transfusion History: No Prior Transfusion(s) Intubation History: Unknown - Review of Systems General: No Symptoms Pulmonary: No Symptoms Cardiovascular: No Symptoms Gastrointestinal: No Symptoms Neurological: No Symptoms Other: Reports: None - Physical Assessment NPO Status Date: 04/07/20 NPO Status Time: 13:30 Height: 5 ft 1 in Weight: 72.121 kg ASA Class: 2 Mental Status: Alert & Oriented x3 Airway Class: Mallampati = 2 Dentition: Reports: Normal Dentition Thyro-Mental Finger Breadths: 2 ROM/Head Extension: Full Lungs: Clear to Auscultation, Normal Respiratory Effort Cardiovascular: Regular Rate, Regular Rhythm Other: 39 weeks for elective induction - Lab Values: Laboratory Last Values WBC 11.49 K/uL (4.0-11.0) H 04/07/20 09:16 RBC 3.74 M/uL (4.30-5.90) L 04/07/20 09:16 Hgb 9.6 g/dL (12.0-16.0) L 04/07/20 09:16 Hct 31.3 % (36.0-46.0) L 04/07/20 09:16 MCV 83.7 fL (80.0-98.0) 04/07/20 09:16 MCH 25.7 pg (27.0-32.0) L 04/07/20 09:16 MCHC 30.7 g/dL (31.0-37.0) L 04/07/20 09:16 RDW Std Deviation 47.2 fl (28.0-62.0) 04/07/20 09:16 RDW Coeff of Harry 16 % (11.0-15.0) H 04/07/20 09:16 Plt Count 171 K/uL (150-400) 04/07/20 09:16 MPV 13.20 fL (7.40-12.00) H 04/07/20 09:16 Nucleated RBC % 0.4 /100WBC 04/07/20 09:16 Nucleated RBCs # 0 K/uL 04/07/20 09:16 Blood Type O POSITIVE 04/07/20 01:31 Antibody Screen NEGATIVE 04/07/20 01:31 Crossmatch See Detail 04/07/20 01:31 - Allergies Allergies/Adverse Reactions: Allergies Allergy/AdvReac Type Severity Reaction Status Date / Time ibuprofen [From Advil] Allergy Swelling Verified 12/12/18 10:20 - Acknowledgements Anesthesia Type Planned: Epidural Pt an Appropriate Candidate for the Planned Anesthesia: Yes Alternatives and Risks of Anesthesia Discussed w Pt/Guardian: Yes Pt/Guardian Understands and Agrees with Anesthesia Plan: Yes PreAnesthesia Questionnaire - Past Health History Medical/Surgical History: Denies Medical/Surgical History HEENT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: None Cardiovascular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: None Respiratory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: None Gastrointestinal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: Cholelithiasis, Other (See Below) Other Gastrointestinal History: gall stones, 2018. 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: Musculoskeletal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: None Neurological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: Migraines Psychiatric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: None Endocrine/Metabolic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: None Hematologic History: Reports: None Immunologic History: Reports: None Oncologic (Cancer) History: Reports: None Dermatologic History: Reports: None - Infectious Disease History Infectious Disease History: Reports: None - Past Surgical History Head Surgeries/Procedures: Reports: None HEENT Surgical History: Reports: None Cardiovascular Surgical History: Reports: None Respiratory Surgical History: Reports: None GI Surgical History: Reports: Cholecystectomy, Other (See Below) Other GI Surgeries/Procedures: cholecystectomy, 2018. Female Surgical History: Reports: None Endocrine Surgical History: Reports: None Neurological Surgical History: Reports: None Musculoskeletal Surgical History: Reports: None Oncologic Surgical History: Reports: None Dermatological Surgical History: Reports: None - SUBSTANCE USE Smoking Status *Q: Never Smoker Second Hand Smoke Exposure: No Recreational Drug Use History: No - HOME MEDS Home Medications: Home Meds Acetaminophen [Tylenol] 325 mg PO Q4HR PRN 04/07/20 [History] Calcium Carbonate [Tums Extra Strength] 750 mg PO DAILY 04/07/20 [History] Vits #93/Iron Fum/FA [ Formula Tablet] 1 each PO DAILY [History] - CURRENT (IN HOUSE) MEDS Current Meds: Current Medications Carboprost Tromethamine (Hemabate Ds) 250 mcg IM ASDIRECTED PRN PRN Reason: Post Hemorrhage Hydroxyzine Pamoate (Vistaril) 50 mg PO BEDTIME PRN PRN Reason: Sleep Lactated Ringer's (Ringers, Lactated) 1,000 mls @ 150 mls/hr IV ASDIRECTED JO-ANN Last Admin: 04/07/20 14:05 Dose: 999 mls/hr Oxytocin/Sodium Chloride (Oxytocin 30 Unit/500 Ml-Ns) 30 unit in 500 mls @ 2 mls/hr IV TITRATE JO-ANN; Protocol Oxytocin/Sodium Chloride (Oxytocin 30 Unit/500 Ml-Ns) 30 unit in 500 mls @ 999 mls/hr IV TITRATE JO-ANN Tranexamic Acid 1,000 mg/ (Sodium Chloride) 110 mls @ 660 mls/hr IV ONETIME PRN PRN Reason: Bleeding Lidocaine HCl (Xylocaine 1%) 50 ml INJECT ONETIME PRN PRN Reason: Laceration repair Methylergonovine Maleate (Methergine) 0.2 mg IM ASDIRECTED PRN PRN Reason: Post Hemorrhage Misoprostol (Cytotec) 25 mcg VAG ONETIME PRN PRN Reason: Cervical Ripening Last Admin: 04/07/20 03:04 Dose: 25 mcg Misoprostol (Cytotec) 25 mcg VAG Q4H PRN PRN Reason: Cervical Ripening Last Admin: 04/07/20 11:20 Dose: 25 mcg Misoprostol (Cytotec) 200 mcg PO ONETIME PRN PRN Reason: Post Hemorrhage Misoprostol (Cytotec) 25 mcg PO ONETIME PRN PRN Reason: Cervical Ripening Last Admin: 04/07/20 03:04 Dose: 25 mcg Misoprostol (Cytotec) 25 mcg PO Q4H PRN PRN Reason: Cervical Ripening Last Admin: 04/07/20 11:20 Dose: 25 mcg Nalbuphine HCl (Nubain) 10 mg IVPUSH Q1H PRN PRN Reason: Pain (severe 7-10) Ondansetron HCl (Zofran) 4 mg IVPUSH Q6H PRN PRN Reason: Nausea/Vomiting Sodium Chloride (Saline Flush) 10 ml FLUSH ASDIRECTED PRN PRN Reason: Keep Vein Open Sodium Chloride (Saline Flush) 2.5 ml FLUSH ASDIRECTED PRN PRN Reason: Keep Vein Open Sodium Chloride (Normal Saline) 10 ml IV ASDIRECTED PRN PRN Reason: IV Use Sterile Water (Sterile Water For Irrigation) 1,000 ml IRR ASDIRECTED PRN PRN Reason: delivery Terbutaline Sulfate (Brethine) 0.25 mg SUBCUT ASDIRECTED PRN PRN Reason: Tacysystole Discontinued Medications Fentanyl (Sublimaze) Confirm Administered Dose 100 mcg .ROUTE .STK-MED ONE Stop: 04/07/20 14:57 Oxytocin/Sodium Chloride (Oxytocin 30 Unit/500 Ml-Ns) Confirm Administered Dose 30 unit in 500 mls @ as directed .ROUTE .STK-MED ONE Stop: 04/07/20 08:49 Ropivacaine (Naropin 0.2%) Confirm Administered Dose 20 ml .ROUTE .STK-MED ONE Stop: 04/07/20 14:57
[2020-04-07] MEDS ORDERED: Ropivacaine HCl/PF 100 ML ONE (16:30)
--- NOTE | 2020-04-07 16:38 | PCM.SN.2 ---
- Free Text/Narrative Note: Pharmacy didn't have any pre mixed epidural bags available. Have been waiting for them to mix a bag. Decision was made to start a Naropin infusion until the appropriate medication is ready. Naropin infusion started at 8 ml per hour with 5 ml bolus available every 15 minutes.
--- NOTE | 2020-04-07 17:50 | PCM.SN.2 ---
- Free Text/Narrative Note: Changed epidural infusion to 0.125% Bupivicaine with 2 mcg/ml Fentanyl. Remain at 8 ml per hour with 5 ml bolus available every 15 minutes.
--- NOTE | 2020-04-07 19:48 | PCM.DEL ---
L & D Note - General Info Date of Service: 04/07/20 Mother's Due Date: 04/14/20 - Delivery Note Labor: Augmented by ARM, Augmented by Oxytocin Cervical Ripening Method: Misoprostil Delivery Outcome: Livebirth Delivery Method: Spontaneous Vaginal Delivery-Single Presentation: Vertex Nuchal Cord: Present (x1, somersaulted through) Anesthesia Type: Epidural Amniotic Fluid Description: Clear Episiotomy Type: None Laceration: None Placenta: Intact, Spontaneous Cord: 3 Vessels Estimated Blood Loss: 150 Resuscitation Needed: No [place]: Suctioned, Stimulated Score 1 min: 8 Score 5 min: 9 Second Stage Interventions: Reports: Second Nurse Assessed Progress of Descent, Second Nurse Reviewed Contraction Pattern, Second Nurse Reviewed Heart Tones, Encouragement Given, Pushing Effectively, Pushing, Pulls Own Legs Back Delivery Comments (Free Text/Narrative):: viable female; head delivered with good pushing, shoulders and body followed easily after; nuchal x1, somersaulted through; baby to mom's abdomen [id number]; APGARs 8/9, weight pending; cord doubly clamped, cut by FOB after 60 seconds; placenta delivered grossly intact, 3VC, EBL 150 mL; pitocin to IVF; perineum intact; epidural for pain relief; mom and baby left [id number] in stable condition with nurse at bedside for assessment - General Info Date of Service: 04/07/20 Admission Dx/Problem (Free Text): Patient Status Order with Admit Dx/Problem 04/07/20 00:39 Patient Status [ADT] Routine Admission Diagnosis/Problem Admission Diagnosis/Problem Functional Status: Reports: Pain Controlled - Review of Systems General: Reports: No Symptoms HEENT: Reports: No Symptoms Pulmonary: Reports: No Symptoms Cardiovascular: Reports: No Symptoms Gastrointestinal: Reports: No Symptoms Genitourinary: Reports: No Symptoms Musculoskeletal: Reports: No Symptoms Skin: Reports: No Symptoms Neurological: Reports: No Symptoms Psychiatric: Reports: No Symptoms - Patient Data Weight - Most Recent: 159 lb Lab Results Last 24 Hours: Laboratory Results - last 24 hr 04/07/20 04/07/20 04/07/20 Range/Units 01:31 01:31 09:16 WBC 15.76 H 11.49 H (4.0-11.0) K/uL RBC 2.67 L 3.74 L (4.30-5.90) M/uL Hgb 6.8 L 9.6 L (12.0-16.0) g/dL Hct 22.3 L 31.3 L (36.0-46.0) % MCV 83.5 83.7 (80.0-98.0) fL MCH 25.5 L 25.7 L (27.0-32.0) pg MCHC 30.5 L 30.7 L (31.0-37.0) g/dL RDW Std Deviation 46.8 47.2 (28.0-62.0) fl RDW Coeff of Harry 16 H 16 H (11.0-15.0) % Plt Count 330 171 (150-400) K/uL MPV 13.20 H (7.40-12.00) fL Nucleated RBC % 0.0 0.4 /100WBC Nucleated RBCs # 0 0 K/uL Blood Type O POSITIVE Antibody Screen NEGATIVE Crossmatch See Detail Med Orders - Current: Current Medications Carboprost Tromethamine (Hemabate Ds) 250 mcg IM ASDIRECTED PRN PRN Reason: Post Hemorrhage Hydroxyzine Pamoate (Vistaril) 50 mg PO BEDTIME PRN PRN Reason: Sleep Lactated Ringer's (Ringers, Lactated) 1,000 mls @ 150 mls/hr IV ASDIRECTED JO-ANN Last Admin: 04/07/20 15:16 Dose: 150 mls/hr Oxytocin/Sodium Chloride (Oxytocin 30 Unit/500 Ml-Ns) 30 unit in 500 mls @ 2 mls/hr IV TITRATE JO-ANN; Protocol Last Titration: 04/07/20 17:00 Dose: 10 munits/min, 10 mls/hr Oxytocin/Sodium Chloride (Oxytocin 30 Unit/500 Ml-Ns) 30 unit in 500 mls @ 999 mls/hr IV TITRATE JO-ANN Tranexamic Acid 1,000 mg/ (Sodium Chloride) 110 mls @ 660 mls/hr IV ONETIME PRN PRN Reason: Bleeding Lidocaine HCl (Xylocaine 1%) 50 ml INJECT ONETIME PRN PRN Reason: Laceration repair Methylergonovine Maleate (Methergine) 0.2 mg IM ASDIRECTED PRN PRN Reason: Post Hemorrhage Misoprostol (Cytotec) 25 mcg VAG ONETIME PRN PRN Reason: Cervical Ripening Last Admin: 04/07/20 03:04 Dose: 25 mcg Misoprostol (Cytotec) 25 mcg VAG Q4H PRN PRN Reason: Cervical Ripening Last Admin: 04/07/20 11:20 Dose: 25 mcg Misoprostol (Cytotec) 200 mcg PO ONETIME PRN PRN Reason: Post Hemorrhage Misoprostol (Cytotec) 25 mcg PO ONETIME PRN PRN Reason: Cervical Ripening Last Admin: 04/07/20 03:04 Dose: 25 mcg Misoprostol (Cytotec) 25 mcg PO Q4H PRN PRN Reason: Cervical Ripening Last Admin: 04/07/20 11:20 Dose: 25 mcg Nalbuphine HCl (Nubain) 10 mg IVPUSH Q1H PRN PRN Reason: Pain (severe 7-10) Ondansetron HCl (Zofran) 4 mg IVPUSH Q6H PRN PRN Reason: Nausea/Vomiting Sodium Chloride (Saline Flush) 10 ml FLUSH ASDIRECTED PRN PRN Reason: Keep Vein Open Sodium Chloride (Saline Flush) 2.5 ml FLUSH ASDIRECTED PRN PRN Reason: Keep Vein Open Sodium Chloride (Normal Saline) 10 ml IV ASDIRECTED PRN PRN Reason: IV Use Sterile Water (Sterile Water For Irrigation) 1,000 ml IRR ASDIRECTED PRN PRN Reason: delivery Terbutaline Sulfate (Brethine) 0.25 mg SUBCUT ASDIRECTED PRN PRN Reason: Tacysystole Discontinued Medications Fentanyl (Sublimaze) Confirm Administered Dose 100 mcg .ROUTE .STK-MED ONE Stop: 04/07/20 14:57 Oxytocin/Sodium Chloride (Oxytocin 30 Unit/500 Ml-Ns) Confirm Administered Dose 30 unit in 500 mls @ as directed .ROUTE .STK-MED ONE Stop: 04/07/20 08:49 Ropivacaine (Naropin 0.2%) Confirm Administered Dose 100 mls @ as directed .ROUTE .STK-MED ONE Stop: 04/07/20 16:31 Ropivacaine (Naropin 0.2%) Confirm Administered Dose 20 ml .ROUTE .STK-MED ONE Stop: 04/07/20 14:57 - Exam General: Alert, Oriented, Cooperative, No Acute Distress Lungs: Normal Respiratory Effort Cardiovascular: Regular Rate, Regular Rhythm GI/Abdominal Exam: Soft, Non-Tender (Female) Exam: Normal External Exam Extremities: Normal Capillary Refill Skin: Warm, Dry, Intact Neurological: No New Focal Deficit, Normal Speech, Normal Tone Psy/Mental Status: Alert, Normal Affect, Normal Mood - Problem List & Annotations (1) Supervision of normal IUP (intrauterine ) in multigravida SNOMED Code(s): 731732153, 089713723, 840739776 Code(s): Z34.80 - ENCOUNTER FOR SUPRVSN OF NORMAL , UNSP TRIMESTER Status: Acute Priority: High Current Visit: Yes Qualifiers: Trimester: third trimester Qualified Code(s): Z34.83 - Encounter for supervision of other normal , third trimester (2) (normal spontaneous vaginal delivery) SNOMED Code(s): 46150545, 801361762 Code(s): O80 - ENCOUNTER FOR FULL-TERM UNCOMPLICATED DELIVERY Status: Acute Priority: High Current Visit: Yes - Problem List Review Problem List Initiated/Reviewed/Updated: Yes - My Orders Last 24 Hours: My Active Orders 04/07/20 01:31 RED BLOOD CELLS LP [BBK] Routine - Plan Plan:: Admit: A: at 39 weeks; O+, Rubella immune, GBS negative; SUE: 04/14/20 P: Admit; induction of labor; cytotec to pitocin; anticipate ; epidural PRN ; Dr. Ng updated. Labor A: viable female; APGARs 8/9, weight pending; placenta delivered grossly intact, 3VC, EBL 150 mL; perineum intact; pitocin to IVF; mom and baby left skin -to-skin in stable condition with nurse at bedside for assessment P: Routine plan of care; Dr. Ng updated.
[2020-04-07] MEDS ORDERED: Witch Hazel Medicated Pads 40/Jar TOP PRN (19:52)
[2020-04-07] MEDS ORDERED: Lanolin 100% Cream 7 GM Tube TOP PRN (19:52)
[2020-04-07] MEDS ORDERED: Docusate Sodium 100 MG Cap PO PRN (19:52)
[2020-04-07] MEDS ORDERED: oxyCODONE 5 MG Tab PO PRN (19:52)
[2020-04-07] MEDS ORDERED: Ibuprofen 400 MG Tab PO PRN (19:52)
[2020-04-07] MEDS ORDERED: Acetaminophen 500 MG Tab PO PRN ×2 (19:52)
[2020-04-07] MEDS ORDERED: Benzocaine/Menthol 20%-0.5% Spray 78 GM Cannister TOP PRN (19:52)
[2020-04-07] MEDS ORDERED: Bisacodyl 10 MG Supp RECTAL PRN (19:52)
--- NOTE | 2020-04-07 23:02 | PCM.POSTAN ---
POST ANESTHESIA ASSESSMENT - MENTAL STATUS Mental Status: Alert, Oriented - RESPIRATORY Respiratory Status: Respiratory Rate WNL, Airway Patent, O2 Saturation Stable - CARDIOVASCULAR CV Status: Pulse Rate WNL, Blood Pressure Stable - GASTROINTESTINAL GI Status: No Symptoms - POST OP HYDRATION Hydration Status: Adequate & Stable
[2020-04-08] MEDS: Ibuprofen 800 MG Tab PO PRN ×2 (05:06→12:39)
--- NOTE | 2020-04-08 06:25 | PCM48HPAN ---
Post Anesthesia Note - EVALUATION WITHIN 48HRS OF ANESTHETIC Vital Signs in Normal Range: Yes Patient Participated in Evaluation: Yes Respiratory Function Stable: Yes Airway Patent: Yes Cardiovascular Function Stable: Yes Hydration Status Stable: Yes Pain Control Satisfactory: Yes Nausea and Vomiting Control Satisfactory: Yes Mental Status Recovered: Yes Vital Signs: Last Vital Signs Temp 36.3 C 04/08/20 05:10 Pulse 70 04/08/20 05:10 Resp 14 04/08/20 05:10 BP 105/58 L 04/08/20 05:10 Pulse Ox 97 04/08/20 05:10
--- NOTE | 2020-04-08 08:46 | PCM.DCSUM1 ---
Discharge Summary - Hospital Course Diagnosis: Stroke: No - Discharge Data Discharge Date: 04/08/20 Discharge Disposition: Home, Self-Care 01 Condition: Good - Referral to Home Health Primary Care Physician: PCP None - Patient Instructions Diet: Usual Diet as Tolerated Activity: As Tolerated Driving: Do Not Drive Showering/Bathing: May Shower - Discharge Plan Home Medications: Home Meds Acetaminophen [Tylenol] 325 mg PO Q4HR PRN 04/07/20 [History] Calcium Carbonate [Tums Extra Strength] 750 mg PO DAILY 04/07/20 [History] Vits #93/Iron Fum/FA [ Formula Tablet] 1 each PO DAILY [History] Referrals: [facility] [Outside] Marilyn Moreira, PEGGYM, PLATFORM BEATER [Mid-] - 05/19/20 3:00 pm - Discharge Summary/Plan Comment DC Time >30 min.: Yes - General Info Date of Service: 04/08/20 Functional Status: Reports: Pain Controlled - Review of Systems General: Reports: No Symptoms HEENT: Reports: No Symptoms Pulmonary: Reports: No Symptoms Cardiovascular: Reports: No Symptoms Gastrointestinal: Reports: No Symptoms Genitourinary: Reports: No Symptoms Musculoskeletal: Reports: No Symptoms Skin: Reports: No Symptoms Neurological: Reports: No Symptoms Psychiatric: Reports: No Symptoms - Patient Data Vitals - Most Recent: Last Vital Signs Temp 36.3 C 04/08/20 05:10 Pulse 70 04/08/20 05:10 Resp 14 04/08/20 05:10 BP 105/58 L 04/08/20 05:10 Pulse Ox 97 04/08/20 05:10 Weight - Most Recent: 72.121 kg I&O - Last 24 hours: Intake & Output 04/07/20 04/08/20 04/08/20 22:59 06:59 14:59 Output Total 850 Balance -850 Lab Results - Last 24 hrs: Laboratory Results - last 24 hr 04/07/20 04/07/20 04/08/20 Range/Units 01:31 09:16 05:48 WBC 11.49 H (4.0-11.0) K/uL RBC 3.74 L (4.30-5.90) M/uL Hgb 9.6 L 9.1 L (12.0-16.0) g/dL Hct 31.3 L 30.1 L (36.0-46.0) % MCV 83.7 (80.0-98.0) fL MCH 25.7 L (27.0-32.0) pg MCHC 30.7 L (31.0-37.0) g/dL RDW Std Deviation 47.2 (28.0-62.0) fl RDW Coeff of Harry 16 H (11.0-15.0) % Plt Count 171 (150-400) K/uL MPV 13.20 H (7.40-12.00) fL Nucleated RBC % 0.4 /100WBC Nucleated RBCs # 0 K/uL Blood Type O POSITIVE Antibody Screen NEGATIVE Crossmatch See Detail Med Orders - Current: Current Medications Acetaminophen (Tylenol Extra Strength) 500 mg PO Q4H PRN PRN Reason: Pain Last Admin: 04/08/20 00:58 Dose: 500 mg Acetaminophen (Tylenol Extra Strength) 1,000 mg PO Q4H PRN PRN Reason: Pain Benzocaine/Menthol (Dermoplast Pain Relief 20%-0.5% [place]) 78 gm TOP ASDIRECTED PRN PRN Reason: Perineal Comfort Measure Last Admin: 04/07/20 21:42 Dose: 1 can Bisacodyl (Dulcolax) 10 mg RECTAL ONETIME PRN PRN Reason: Constipation Docusate Sodium (Colace) 100 mg PO BID PRN PRN Reason: Constipation Emollient Ointment (Lansinoh Hpa) 0 gm TOP ASDIRECTED PRN PRN Reason: Sore Nipples Ibuprofen (Motrin) 400 mg PO Q4H PRN PRN Reason: Pain Ibuprofen (Motrin) 800 mg PO Q6H PRN PRN Reason: Pain Last Admin: 04/08/20 05:06 Dose: 800 mg Oxycodone HCl (Oxycodone) 5 mg PO Q2H PRN PRN Reason: Pain Witch Padmini (Tucks) 1 pad TOP ASDIRECTED PRN PRN Reason: comfort care Last Admin: 04/07/20 21:42 Dose: 1 tub Discontinued Medications Carboprost Tromethamine (Hemabate Ds) 250 mcg IM ASDIRECTED PRN PRN Reason: Post Hemorrhage Fentanyl (Sublimaze) Confirm Administered Dose 100 mcg .ROUTE .STK-MED ONE Stop: 04/07/20 14:57 Last Admin: 04/07/20 20:45 Dose: Not Given Hydroxyzine Pamoate (Vistaril) 50 mg PO BEDTIME PRN PRN Reason: Sleep Lactated Ringer's (Ringers, Lactated) 1,000 mls @ 150 mls/hr IV ASDIRECTED JO-ANN Last Admin: 04/07/20 15:16 Dose: 150 mls/hr Oxytocin/Sodium Chloride (Oxytocin 30 Unit/500 Ml-Ns) 30 unit in 500 mls @ 2 mls/hr IV TITRATE JO-ANN; Protocol Last Titration: 04/07/20 19:30 Dose: 999 mls/hr Oxytocin/Sodium Chloride (Oxytocin 30 Unit/500 Ml-Ns) 30 unit in 500 mls @ 999 mls/hr IV TITRATE JO-ANN Tranexamic Acid 1,000 mg/ (Sodium Chloride) 110 mls @ 660 mls/hr IV ONETIME PRN PRN Reason: Bleeding Oxytocin/Sodium Chloride (Oxytocin 30 Unit/500 Ml-Ns) Confirm Administered Dose 30 unit in 500 mls @ as [facility] Stop: 04/07/20 08:49 Last Admin: 04/07/20 20:45 Dose: Not Given Ropivacaine (Naropin 0.2%) Confirm Administered Dose 100 mls @ as directed .ROUTE .[place] ONE Stop: 04/07/20 16:31 Last Admin: 04/07/20 20:46 Dose: Not Given Lidocaine HCl (Xylocaine 1%) 50 ml INJECT ONETIME PRN PRN Reason: Laceration repair Methylergonovine Maleate (Methergine) 0.2 mg IM ASDIRECTED PRN PRN Reason: Post Hemorrhage Misoprostol (Cytotec) 25 mcg VAG ONETIME PRN PRN Reason: Cervical Ripening Last Admin: 04/07/20 03:04 Dose: 25 mcg Misoprostol (Cytotec) 25 mcg VAG Q4H PRN PRN Reason: Cervical Ripening Last Admin: 04/07/20 11:20 Dose: 25 mcg Misoprostol (Cytotec) 200 mcg PO ONETIME PRN PRN Reason: Post Hemorrhage Misoprostol (Cytotec) 25 mcg PO ONETIME PRN PRN Reason: Cervical Ripening Last Admin: 04/07/20 03:04 Dose: 25 mcg Misoprostol (Cytotec) 25 mcg PO Q4H PRN PRN Reason: Cervical Ripening Last Admin: 04/07/20 11:20 Dose: 25 mcg Nalbuphine HCl (Nubain) 10 mg IVPUSH Q1H PRN PRN Reason: Pain (severe 7-10) Ondansetron HCl (Zofran) 4 mg IVPUSH Q6H PRN PRN Reason: Nausea/Vomiting Ropivacaine (Naropin 0.2%) Confirm Administered Dose 20 ml .ROUTE .[facility] ONE Stop: 04/07/20 14:57 Last Admin: 04/07/20 20:45 Dose: Not Given Sodium Chloride (Saline Flush) 10 ml FLUSH ASDIRECTED PRN PRN Reason: Keep Vein Open Sodium Chloride (Saline Flush) 2.5 ml FLUSH ASDIRECTED PRN PRN Reason: Keep Vein Open Sodium Chloride (Normal Saline) 10 ml IV ASDIRECTED PRN PRN Reason: IV Use Sterile Water (Sterile Water For Irrigation) 1,000 ml IRR ASDIRECTED PRN PRN Reason: delivery Terbutaline Sulfate (Brethine) 0.25 mg SUBCUT ASDIRECTED PRN PRN Reason: Tacysystole - Exam General: Reports: Alert, Oriented HEENT: Reports: Pupils Equal, Pupils Reactive, EOMI, Mucous Membr. Moist/[place] Neck: Reports: Supple Lungs: Reports: Clear to Auscultation, Normal Respiratory Effort Cardiovascular: Reports: Regular Rate, Regular Rhythm GI/Abdominal Exam: Normal Bowel Sounds, Soft, Non-Tender, No Organomegaly, No Distention, No Abnormal Bruit, No Mass, Pelvis Stable (Female) Exam: Normal External Exam, Normal Speculum Exam, Normal Bimanual Exam Rectal (Female) Exam: Normal Exam, Normal Rectal Tone Back Exam: Reports: Normal Inspection, Full Range of Motion Extremities: Normal Inspection, Normal Range of Motion, Non-Tender, No Pedal Edema, Normal Capillary Refill Skin: Reports: Warm, Dry, Intact Wound/Incisions: Reports: Healing Well Neurological: Reports: No New Focal Deficit Psy/Mental Status: Reports: Alert, Normal Affect, Normal Mood
[2020-04-09] MEDS: Ibuprofen 800 MG Tab PO PRN ×2 (05:13→12:35)
--- NOTE | 2020-04-09 09:51 | PCM.DCSUM1 ---
Discharge Summary - Hospital Course Free Text/Narrative:: Carolina is a 29 yo PPD2 S/P uncomplicated to term NBF at 39.0 weeks gestation. O pos, RI, GBS neg. Pertinent history includes: migraines. Hemodynamically stable, afebrile. Patient is well and supplementing with formula for management of jaundice in , resting comfortably in bed with latched to left breast Patient reports she is eating, voiding, ambulating independently and without difficulty. Patient denies any problems or concerns at this time except moderate to severe intermittent uterine cramping relieved with Tylenol and Ibuprofen. Patient reports small rubra lochia with not clots. Patient verbalizes her readiness to be discharged home. Diagnosis: Stroke: No - Discharge Data Discharge Date: 04/09/20 Discharge Disposition: Home, Self-Care 01 Condition: Good - Referral to Home Health Primary Care Physician: PCP None - Discharge Diagnosis/Problem(s) (1) (normal spontaneous vaginal delivery) SNOMED Code(s): 35332786, [id number] ICD Code: O80 - ENCOUNTER FOR FULL-TERM UNCOMPLICATED DELIVERY Status: Acute Priority: High Current Visit: Yes (2) Lactating mother SNOMED Code(s): 043770599, [id number] ICD Code: Z39.1 - ENCOUNTER FOR CARE AND EXAMINATION OF LACTATING MOTHER Status: Acute Priority: High Current Visit: Yes - Patient Instructions Diet: Usual Diet as Tolerated, Drink 8-10+ Glasses/Day Activity: As Tolerated, No Lifting Over 20 Pounds Driving: May Drive Today Showering/Bathing: May Shower Showering/Bathing, Other: May utilize sitz baths for comfort of the perineum Notify Provider of: Fever, Increased Pain, Swelling and Redness, Drainage, Nausea and/or Vomiting - Discharge Plan *PRESCRIPTION DRUG MONITORING PROGRAM REVIEWED*: No *COPY OF PRESCRIPTION DRUG MONITORING REPORT IN PATIENT ANTHONY: No Prescriptions/Med Rec: Acetaminophen [Tylenol Extra Strength] 1,000 mg PO Q6H PRN #90 tablet PRN Reason: Pain Ibuprofen [Motrin] 800 mg PO Q8H PRN #90 tablet PRN Reason: Pain Lanolin [Lansinoh HPA] 1 tube TOP ASDIRECTED PRN #1 tube PRN Reason: Sore Nipples Home Medications: Home Meds Calcium Carbonate [Tums Extra Strength] 750 mg PO DAILY 04/07/20 [History] Vits #93/Iron Fum/FA [ Formula Tablet] 1 each PO DAILY [History] Acetaminophen [Tylenol Extra Strength] 1,000 mg PO Q6H PRN #90 tablet 04/09/20 [ Rx] Ibuprofen [Motrin] 800 mg PO Q8H PRN #90 tablet 04/09/20 [Rx] Lanolin [Lansinoh HPA] 1 tube TOP ASDIRECTED PRN #1 tube 04/09/20 [Rx] Oxygen Therapy Mode: Room Air Patient Handouts: Care After Vaginal Delivery Referrals: [facility] [Outside] Marilyn Moreira, PEGGYM, CHECKING CLERK [Mid-] - 05/19/20 3:00 pm - Discharge Summary/Plan Comment DC Time >30 min.: Yes (March D/C home today.) - General Info Date of Service: 04/09/20 Admission Dx/Problem (Free Text: Patient Status Order with Admit Dx/Problem 04/07/20 00:39 Patient Status [ADT] Routine Admission Diagnosis/Problem Admission Diagnosis/Problem Functional Status: Reports: Pain Controlled - Review of Systems General: Reports: No Symptoms HEENT: Reports: No Symptoms Pulmonary: Reports: No Symptoms Cardiovascular: Reports: No Symptoms Gastrointestinal: Reports: No Symptoms Genitourinary: Reports: No Symptoms, Other (Light rubra lochia, no clots.) Musculoskeletal: Reports: No Symptoms Skin: Reports: No Symptoms Neurological: Reports: No Symptoms Psychiatric: Reports: No Symptoms - Patient Data Vitals - Most Recent: Last Vital Signs Temp 97.3 F 04/09/20 08:35 Pulse 68 04/09/20 08:35 Resp 18 04/09/20 08:35 BP 121/73 04/09/20 08:35 Pulse Ox 98 04/09/20 08:35 Weight - Most Recent: 159 lb Lab Results - Last 24 hrs: Laboratory Results - last 24 hr 04/07/20 Range/Units 01:31 RPR Non-Reac (Non-Reac) Med Orders - Current: Current Medications Acetaminophen (Tylenol Extra Strength) 500 mg PO Q4H PRN PRN Reason: Pain Last Admin: 04/08/20 00:58 Dose: 500 mg Acetaminophen (Tylenol Extra Strength) 1,000 mg PO Q4H PRN PRN Reason: Pain Last Admin: 04/08/20 18:37 Dose: 1,000 mg Benzocaine/Menthol (Dermoplast Pain Relief 20%-0.5% [place]) 78 gm TOP ASDIRECTED PRN PRN Reason: Perineal Comfort Measure Last Admin: 04/07/20 21:42 Dose: 1 can Bisacodyl (Dulcolax) 10 mg RECTAL ONETIME PRN PRN Reason: Constipation Docusate Sodium (Colace) 100 mg PO BID PRN PRN Reason: Constipation Emollient Ointment (Lansinoh Hpa) 0 gm TOP ASDIRECTED PRN PRN Reason: Sore Nipples Ibuprofen (Motrin) 400 mg PO Q4H PRN PRN Reason: Pain Ibuprofen (Motrin) 800 mg PO Q6H PRN PRN Reason: Pain Last Admin: 04/09/20 05:13 Dose: 800 mg Oxycodone HCl (Oxycodone) 5 mg PO Q2H PRN PRN Reason: Pain Witch Padmini (Tucks) 1 pad TOP ASDIRECTED PRN PRN Reason: comfort care Last Admin: 04/07/20 21:42 Dose: 1 tub Discontinued Medications Carboprost Tromethamine (Hemabate Ds) 250 mcg IM ASDIRECTED PRN PRN Reason: Post Hemorrhage Fentanyl (Sublimaze) Confirm Administered Dose 100 mcg .ROUTE .STK-MED ONE Stop: 04/07/20 14:57 Last Admin: 04/07/20 20:45 Dose: Not Given Hydroxyzine Pamoate (Vistaril) 50 mg PO BEDTIME PRN PRN Reason: Sleep Lactated Ringer's (Ringers, Lactated) 1,000 mls @ 150 mls/hr IV ASDIRECTED JO-ANN Last Admin: 04/07/20 15:16 Dose: 150 mls/hr Oxytocin/Sodium Chloride (Oxytocin 30 Unit/500 Ml-Ns) 30 unit in 500 mls @ 2 mls/hr IV TITRATE JO-ANN; Protocol Last Titration: 04/07/20 19:30 Dose: 999 mls/hr Oxytocin/Sodium Chloride (Oxytocin 30 Unit/500 Ml-Ns) 30 unit in 500 mls @ 999 mls/hr IV TITRATE JO-ANN Tranexamic Acid 1,000 mg/ (Sodium Chloride) 110 mls @ 660 mls/hr IV ONETIME PRN PRN Reason: Bleeding Oxytocin/Sodium Chloride (Oxytocin 30 Unit/500 Ml-Ns) Confirm Administered Dose 30 unit in 500 mls @ as directed .ROUTE .DriveFactor ONE Stop: 04/07/20 08:49 Last Admin: 04/07/20 20:45 Dose: Not Given Ropivacaine (Naropin 0.2%) Confirm Administered Dose 100 mls @ as directed .ROUTE .DriveFactor ONE Stop: 04/07/20 16:31 Last Admin: 04/07/20 20:46 Dose: Not Given Lidocaine HCl (Xylocaine 1%) 50 ml INJECT ONETIME PRN PRN Reason: Laceration repair Methylergonovine Maleate (Methergine) 0.2 mg IM ASDIRECTED PRN PRN Reason: Post Hemorrhage Misoprostol (Cytotec) 25 mcg VAG ONETIME PRN PRN Reason: Cervical Ripening Last Admin: 04/07/20 03:04 Dose: 25 mcg Misoprostol (Cytotec) 25 mcg VAG Q4H PRN PRN Reason: Cervical Ripening Last Admin: 04/07/20 11:20 Dose: 25 mcg Misoprostol (Cytotec) 200 mcg PO ONETIME PRN PRN Reason: Post Hemorrhage Misoprostol (Cytotec) 25 mcg PO ONETIME PRN PRN Reason: Cervical Ripening Last Admin: 04/07/20 03:04 Dose: 25 mcg Misoprostol (Cytotec) 25 mcg PO Q4H PRN PRN Reason: Cervical Ripening Last Admin: 04/07/20 11:20 Dose: 25 mcg Nalbuphine HCl (Nubain) 10 mg IVPUSH Q1H PRN PRN Reason: Pain (severe 7-10) Ondansetron HCl (Zofran) 4 mg IVPUSH Q6H PRN PRN Reason: Nausea/Vomiting Ropivacaine (Naropin 0.2%) Confirm Administered Dose 20 ml .ROUTE .DriveFactor ONE Stop: 04/07/20 14:57 Last Admin: 04/07/20 20:45 Dose: Not Given Sodium Chloride (Saline Flush) 10 ml FLUSH ASDIRECTED PRN PRN Reason: Keep Vein Open Sodium Chloride (Saline Flush) 2.5 ml FLUSH ASDIRECTED PRN PRN Reason: Keep Vein Open Sodium Chloride (Normal Saline) 10 ml IV ASDIRECTED PRN PRN Reason: IV Use Sterile Water (Sterile Water For Irrigation) 1,000 ml IRR ASDIRECTED PRN PRN Reason: delivery Terbutaline Sulfate (Brethine) 0.25 mg SUBCUT ASDIRECTED PRN PRN Reason: Tacysystole - Exam General: Reports: Alert, Oriented HEENT: Reports: Pupils Equal, Pupils Reactive, Mucous Membr. Moist/[place] Neck: Reports: Supple Lungs: Reports: Clear to Auscultation, Normal Respiratory Effort Cardiovascular: Reports: Regular Rate, Regular Rhythm GI/Abdominal Exam: Normal Bowel Sounds, Soft, Non-Tender, No Organomegaly, No Distention (Female) Exam: Normal External Exam, Vaginal Bleeding (Small rubra lochia, no clots. Uterus firm, U-2) Rectal (Female) Exam: Deferred Back Exam: Reports: Normal Inspection, Full Range of Motion Extremities: Normal Inspection, Normal Range of Motion, Non-Tender, No Pedal Edema, Normal Capillary Refill Skin: Reports: Warm, Dry, Intact Wound/Incisions: Reports: Healing Well Neurological: Reports: No New Focal Deficit Psy/Mental Status: Reports: Alert, Normal Affect, Normal Mood
[2020-04-09 20:11] VITALS: BP 115/75; PULSE 75
== END 2020-04-09 22:15 | disposition home or self-care (01) | DRG 807 ==
LOC: MW.OB 00:08 → MW.OBCHECK 00:08 → MW.OB 00:39 → EEVIPCON 00:39 → MW.OBCHECK 00:39 → OBSVTOIN 19:52 → MW.OB 22:22
PROVIDERS: ADMIT Obstetrics & Gynecology; ATTEND Obstetrics & Gynecology
PROC: 10E0XZZ Delivery of Products of Conception, External Approach (ICD-10-PCS; principal; 2020-04-07)
PROC: 10907ZC Drainage of Amniotic Fluid, Therapeutic from Products of Conception, Via Natural or Artificial Opening (ICD-10-PCS; 2020-04-07)
PROC: 3E0P7VZ Introduction of Hormone into Female Reproductive, Via Natural or Artificial Opening (ICD-10-PCS; 2020-04-07)
PROC: 3E0R3BZ Introduction of Anesthetic Agent into Spinal Canal, Percutaneous Approach (ICD-10-PCS; 2020-04-07)
DX: O69.81X0 Labor and delivery complicated by cord around neck, without compression, not applicable or unspecified (principal); Z37.0 Single live birth; Z3A.39 39 weeks gestation of pregnancy
CPT/HCPCS: 01967; 36415; 51702; 59025; 59409; 85014; 85018; 85027; 86592; 86593; 86850; 86900; 86901; 86920; 86921; 86922; A9270-GY; J2590; J7120

== ENCOUNTER 2022-05-05 05:48 | Emergency (ER) | payer BC, MEDICAID ==
[2022-05-05 06:00] VITALS: PULSE 79
[2022-05-05] MEDS ORDERED: Ketorolac 30 MG/ML SDV IM ONE (06:34)
[2022-05-05 08:32] VITALS: BP 112/64
== END 2022-05-05 08:30 | disposition home or self-care (01) ==
LOC: MW.ED 05:48
DX: J06.9 Acute upper respiratory infection, unspecified (principal)
CPT/HCPCS: 36415; 86308; 87651; 96372; 99283; J1885

== ENCOUNTER 2022-07-14 12:14 | Emergency (ER) | payer BC, MEDICAID ==
[2022-07-14 12:34] VITALS: BP 133/76; PULSE 70
[2022-07-14] MEDS ORDERED: LORazepam 0.5 MG Tab PO ONE (12:44)
[2022-07-14] MEDS ORDERED: Sodium Chloride 0.9% 1,000 ML IV ONE (12:44)
[2022-07-14 13:42] LABS: CARBON DIOXIDE,CO2 24.3 mmol/L (21.0-32.0); POTASSIUM,K 3.9 mmol/L (3.5-5.1)
== END 2022-07-14 14:19 | disposition home or self-care (01) ==
LOC: MW.ED 12:14
DX: T78.40XA Allergy, unspecified, initial encounter (principal); Z79.899 Other long term (current) drug therapy; Z88.6 Allergy status to analgesic agent; Z90.49 Acquired absence of other specified parts of digestive tract
CPT/HCPCS: 36415; 80053; 85025; 96360; 99283; A9270; J7030

== ENCOUNTER 2022-10-21 15:53 | Emergency (ER) | payer BC, MEDICAID ==
[2022-10-21] MEDS ORDERED: diphenhydrAMINE 50 MG/ML SDV IVPUSH ONE (17:41)
[2022-10-21] MEDS ORDERED: Sodium Chloride 0.9% 1,000 ML IV ONE (17:41)
[2022-10-21] MEDS ORDERED: Sodium Chloride 0.9% 10 ML Syringe FLUSH PRN (17:41)
[2022-10-21] MEDS ORDERED: Ketorolac 30 MG/ML SDV IVPUSH ONE (17:41)
[2022-10-21] MEDS ORDERED: Sodium Chloride 0.9% 2.5 ML Syringe FLUSH PRN (17:41)
[2022-10-21] MEDS ORDERED: Prochlorperazine 10 MG/2 ML SDV IVPUSH ONE (17:42)
[2022-10-21 17:48] VITALS: BP 124/86
[2022-10-21 18:55] LABS: CARBON DIOXIDE,CO2 26.6 mmol/L (21.0-32.0); POTASSIUM,K 3.8 mmol/L (3.5-5.1)
[2022-10-21 20:05] VITALS: PULSE 78
== END 2022-10-21 20:04 | disposition home or self-care (01) ==
LOC: MW.ED 15:53
DX: G43.909 Migraine, unspecified, not intractable, without status migrainosus (principal); Z88.6 Allergy status to analgesic agent
CPT/HCPCS: 36415; 80053; 84703; 85025; 96361; 96374; 96375; 99283; J0780; J1200; J1885; J3490; J7030

== ENCOUNTER 2023-08-06 22:11 | Emergency (ER) | payer BC ==
[2023-08-06 23:05] VITALS: BP 119/74; PULSE 75
== END 2023-08-06 23:02 | disposition home or self-care (01) ==
LOC: MW.ED 22:11
DX: J02.9 Acute pharyngitis, unspecified (principal); Z88.6 Allergy status to analgesic agent
CPT/HCPCS: 87651-QW; 99283

== ENCOUNTER 2024-05-16 00:23 | Emergency (ER) | payer BC ==
[2024-05-16] MEDS: Baclofen 10 MG Tab PO ONE (00:59)
[2024-05-16 01:07] LABS: BASOPHILS ABSOLUTE AUTO 0.03 K/uL (0.00-0.20); BASOPHILS PERCENT AUTO 0.2 % (0.0-1.0); EOSINOPHILS ABSOLUTE AUTO 0.24 K/uL (0.00-0.45); EOSINOPHILS PERCENT AUTO 1.8 % (0.0-6.0); HEMATOCRIT 39.1 % (37.0-47.0); HEMOGLOBIN 13.2 g/dL (12.0-16.0); IMMATURE GRAN ABSOLUTE AUTO 0.03 K/uL (0.00-0.05); IMMATURE GRAN PERCENT AUTO 0.2 % (0.0-0.4); LYMPHOCYTES ABSOLUTE AUTO 3.73 K/uL (1.00-4.80); LYMPHOCYTES PERCENT AUTO 27.4 % (24.0-44.0); MEAN CORPUSCULAR HEMOGLOBIN 29.6 pg (28.0-32.0); MEAN CORPUSCULAR HGB CONC 33.8 g/dL (32.0-36.0); MEAN CORPUSCULAR VOLUME 87.7 fL (83.0-99.0); MEAN PLATELET VOLUME 11.9 fL (9.4-12.3); MONOCYTES ABSOLUTE AUTO 0.55 K/uL (0.00-0.80); NEUTROPHILS ABSOLUTE AUTO 9.04 K/uL (1.80-7.70); NEUTROPHILS PERCENT AUTO 66.4 % (41.0-71.0); PLATELET COUNT,PLT 251 K/uL (150-400); RED BLOOD CELL COUNT 4.46 M/uL (4.10-5.30); WHITE BLOOD CELL COUNT,WBC 13.62 K/uL (3.9-11.3)
[2024-05-16 01:39] LABS: A/G RATIO 1.1 (0.9-1.6); ALBUMIN 3.9 g/dL (3.4-5.0); BILIRUBIN TOTAL 0.4 mg/dL (0.2-1.0); CALCIUM 8.9 mg/dL (8.5-10.1); CARBON DIOXIDE,CO2 25.3 mmol/L (21.0-32.0); CREATININE 0.7 mg/dL (0.6-1.0); EST CRCL DRUG DOSING (CG) 92.79 mL/min; POTASSIUM,K 3.9 mmol/L (3.5-5.1); PROTEIN TOTAL,TP 7.4 g/dL (6.4-8.2)
[2024-05-16 02:07] VITALS: BP 116/73; PULSE 71
== END 2024-05-16 02:07 | disposition home or self-care (01) ==
LOC: MW.ED 00:23
DX: R20.2 Paresthesia of skin (principal); Z88.6 Allergy status to analgesic agent; Z75.8 Other problems related to medical facilities and other health care
CPT/HCPCS: 36415; 80053; 85025; 99284; A9270; 99283

== ENCOUNTER 2024-07-31 20:35 | Emergency (ER) | payer BC ==
[2024-07-31 21:05] VITALS: PULSE 68
[2024-07-31] MEDS: Acetaminophen 500 MG Tab PO ONE (21:10)
[2024-07-31] MEDS: Lidocaine 4% 1 each Patch TOP STA (21:21)
[2024-07-31] MEDS: Sodium Chloride 0.9% 1,000 ML IV ONE (21:21)
[2024-07-31 21:29] LABS: BASOPHILS ABSOLUTE AUTO 0.03 K/uL (0.00-0.20); BASOPHILS PERCENT AUTO 0.2 % (0.0-1.0); EOSINOPHILS PERCENT AUTO 2.3 % (0.0-6.0); HEMOGLOBIN 13.5 g/dL (12.0-16.0); IMMATURE GRAN ABSOLUTE AUTO 0.03 K/uL (0.00-0.05); IMMATURE GRAN PERCENT AUTO 0.2 % (0.0-0.4); LYMPHOCYTES ABSOLUTE AUTO 3.61 K/uL (1.00-4.80); LYMPHOCYTES PERCENT AUTO 28.3 % (24.0-44.0); MEAN CORPUSCULAR HEMOGLOBIN 29.5 pg (28.0-32.0); MEAN CORPUSCULAR HGB CONC 33.8 g/dL (32.0-36.0); MEAN CORPUSCULAR VOLUME 87.5 fL (83.0-99.0); MEAN PLATELET VOLUME 11.8 fL (9.4-12.3); MONOCYTES ABSOLUTE AUTO 0.59 K/uL (0.00-0.80); MONOCYTES PERCENT AUTO 4.6 % (0.0-8.0); NEUTROPHILS ABSOLUTE AUTO 8.21 K/uL (1.80-7.70); NEUTROPHILS PERCENT AUTO 64.4 % (41.0-71.0); PLATELET COUNT,PLT 234 K/uL (150-400); RED BLOOD CELL COUNT 4.57 M/uL (4.10-5.30); WHITE BLOOD CELL COUNT,WBC 12.77 K/uL (3.9-11.3)
[2024-07-31 21:30] LABS: APPEARANCE,URINE CLEAR; BILIRUBIN,URINE NEGATIVE (NEGATIVE); COLOR,URINE YELLOW; GLUCOSE,URINE NEGATIVE (NEGATIVE); KETONES,URINE NEGATIVE (NEGATIVE); LEUKOCYTE ESTERASE,URINE NEGATIVE (NEGATIVE); NITRITE,URINE NEGATIVE (NEGATIVE); OCCULT BLOOD,URINE TRACE-INTACT (NEGATIVE); PROTEIN,URINE NEGATIVE (NEGATIVE); UROBILINOGEN,URINE 0.2 EU/dL (<2.0)
[2024-07-31 21:40] LABS: BACTERIA,URINE RARE (NEGATIVE); EPITHELIAL CELLS,URINE RARE (NONE-FEW); MUCUS,URINE NOT SEEN (NONE-MOD); RBC,URINE 0-2 (0-2/HPF); WBC,URINE 0-1 (0-5/HPF)
[2024-07-31 21:59] LABS: A/G RATIO 1.1 (0.9-1.6); BILIRUBIN TOTAL 0.4 mg/dL (0.2-1.0); CARBON DIOXIDE,CO2 25.9 mmol/L (21.0-32.0); CREATININE 0.8 mg/dL (0.6-1.0); EST CRCL DRUG DOSING (CG) 77.63 mL/min; POTASSIUM,K 3.7 mmol/L (3.5-5.1); PROTEIN TOTAL,TP 7.7 g/dL (6.4-8.2)
[2024-07-31 22:18] VITALS: BP 107/66
== END 2024-07-31 22:10 | disposition home or self-care (01) ==
LOC: MW.ED 20:35
DX: R10.12 Left upper quadrant pain (principal); Z88.6 Allergy status to analgesic agent; Z75.8 Other problems related to medical facilities and other health care
CPT/HCPCS: 36415; 80053; 81001; 81025; 83690; 85025; 96360; 99284; A9270; J7030; 99283

== ENCOUNTER 2025-02-28 17:29 | Emergency (ER) | payer MEDICAID ==
[2025-02-28 18:44] LABS: BASOPHILS ABSOLUTE AUTO 0.02 K/uL (0.00-0.20); BASOPHILS PERCENT AUTO 0.2 % (0.0-1.0); EOSINOPHILS ABSOLUTE AUTO 0.18 K/uL (0.00-0.45); HEMATOCRIT 39.7 % (37.0-47.0); IMMATURE GRAN ABSOLUTE AUTO 0.02 K/uL (0.00-0.05); IMMATURE GRAN PERCENT AUTO 0.2 % (0.0-0.4); LYMPHOCYTES ABSOLUTE AUTO 2.74 K/uL (1.00-4.80); LYMPHOCYTES PERCENT AUTO 30.4 % (24.0-44.0); MEAN CORPUSCULAR HEMOGLOBIN 28.6 pg (28.0-32.0); MEAN CORPUSCULAR HGB CONC 32.7 g/dL (32.0-36.0); MEAN CORPUSCULAR VOLUME 87.3 fL (83.0-99.0); MEAN PLATELET VOLUME 12.4 fL (9.4-12.3); MONOCYTES ABSOLUTE AUTO 0.34 K/uL (0.00-0.80); MONOCYTES PERCENT AUTO 3.8 % (0.0-8.0); NEUTROPHILS ABSOLUTE AUTO 5.71 K/uL (1.80-7.70); NEUTROPHILS PERCENT AUTO 63.4 % (41.0-71.0); PLATELET COUNT,PLT 235 K/uL (150-400); RED BLOOD CELL COUNT 4.55 M/uL (4.10-5.30); WHITE BLOOD CELL COUNT,WBC 9.01 K/uL (3.9-11.3)
[2025-02-28 18:57] LABS: INR 1.05 (0.86-1.11)
[2025-02-28] MEDS: Sodium Chloride 0.9% 1,000 ML IV ONE (19:11)
[2025-02-28 19:18] LABS: APPEARANCE,URINE CLEAR; BILIRUBIN,URINE NEGATIVE (NEGATIVE); COLOR,URINE YELLOW; GLUCOSE,URINE NEGATIVE (NEGATIVE); KETONES,URINE NEGATIVE (NEGATIVE); LEUKOCYTE ESTERASE,URINE NEGATIVE (NEGATIVE); NITRITE,URINE NEGATIVE (NEGATIVE); OCCULT BLOOD,URINE NEGATIVE (NEGATIVE); PROTEIN,URINE NEGATIVE (NEGATIVE)
[2025-02-28 19:20] LABS: A/G RATIO 1.2 (0.9-1.6); BILIRUBIN TOTAL 0.7 mg/dL (0.2-1.0); CARBON DIOXIDE,CO2 25.3 mmol/L (21.0-32.0); CREATININE 0.8 mg/dL (0.6-1.0); EST CRCL DRUG DOSING (CG) 76.89 mL/min; POTASSIUM,K 3.8 mmol/L (3.5-5.1); PROTEIN TOTAL,TP 7.4 g/dL (6.4-8.2)
[2025-02-28 19:32] LABS: CALCIUM 8.9 mg/dL (8.5-10.1)
[2025-02-28 20:11] VITALS: BP 105/60; PULSE 66
== END 2025-02-28 20:10 | disposition home or self-care (01) ==
LOC: MW.ED 17:29
DX: J21.9 Acute bronchiolitis, unspecified (principal); J06.9 Acute upper respiratory infection, unspecified; Z88.6 Allergy status to analgesic agent; Z79.899 Other long term (current) drug therapy; Z75.8 Other problems related to medical facilities and other health care
CPT/HCPCS: 36415; 71045; 80053; 81003; 83690; 84484; 84703; 85025; 85610; 87428; 93005; 96360; 99285; J7030; 93010; 99283

== ENCOUNTER 2025-10-25 02:00 | Emergency (ER) | payer MEDICAID ==
[2025-10-25] MEDS ORDERED: Sodium Chloride 0.9% 2.5 ML Syringe FLUSH PRN (02:04)
[2025-10-25] MEDS ORDERED: Sodium Chloride 0.9% 10 ML Syringe FLUSH PRN (02:04)
[2025-10-25 02:14] VITALS: BP 151/85; PULSE 76
[2025-10-25 02:22] LABS: MEAN PLATELET VOLUME 11.8 fL (9.4-12.3); NRBC ABSOLUTE 0.00 K/uL (0.00-0.02); NRBC PERCENT 0.0 /100WBC (0.0-0.2); PLATELET COUNT,PLT 269 K/uL (150-400); RED BLOOD CELL COUNT 4.76 M/uL (4.10-5.30); WHITE BLOOD CELL COUNT,WBC 16.35 K/uL (3.9-11.3)
[2025-10-25] MEDS: droPERidol 2.5 MG/ML SDV IVPUSH ONE (02:27)
[2025-10-25 02:37] LABS: APPEARANCE,URINE CLEAR; GLUCOSE,URINE NEGATIVE (NEGATIVE); OCCULT BLOOD,URINE NEGATIVE (NEGATIVE)
[2025-10-25] MEDS ORDERED: cefTRIAXone 2 GM in Water For Injection, Sterile 20 ML IVPUSH ONE (02:43)
[2025-10-25 02:53] LABS: A/G RATIO 1.1 (0.9-1.6); ALANINE AMINOTRANSFERASE,ALT 21.0 IU/L (14-63); ASPARTATE AMNIOTRANSFERASE,AST 20.0 IU/L (15-37); BILIRUBIN TOTAL 0.6 mg/dL (0.2-1.0); BLOOD UREA NITROGEN,BUN 10.0 mg/dL (7.0-18.0); CARBON DIOXIDE,CO2 25.0 mmol/L (21.0-32.0); CHLORIDE,CL 103.0 mmol/L (98-107); CREATININE 0.8 mg/dL (0.6-1.0); EST CRCL DRUG DOSING (CG) 79.65 mL/min; GLUCOSE RANDOM 98.0 mg/dL (74-106); POTASSIUM,K 3.4 mmol/L (3.5-5.1); PROTEIN TOTAL,TP 8.5 g/dL (6.4-8.2); SODIUM,NA 141.0 mmol/L (136-145)
[2025-10-25 02:56] LABS: EOSINOPHILS ABSOLUTE MAN 0.33 K/uL (0.00-0.45); EOSINOPHILS PERCENT MAN 2 % (0-6); LYMPHOCYTES ABSOLUTE MAN 6.21 K/uL (1.00-4.80); LYMPHOCYTES PERCENT MAN 38 % (24-44); MONOCYTES ABSOLUTE MAN 0.65 K/uL (0.00-0.80); MONOCYTES PERCENT MAN 4 % (0-8); SEG NEUTROPHILS ABSOLUTE MAN 9.16 K/uL (1.80-7.70); SEG NEUTROPHILS PERCENT MAN 56 % (41-71)
[2025-10-25 02:57] LABS: EPITHELIAL CELLS,URINE FEW (NONE-FEW)
[2025-10-25 02:59] LABS: ESTIMATED GFR 97.0 mL/min (>60)
[2025-10-25] MEDS: Iopamidol 755 MG/ML 500 ML Multipack Bottle IVPUSH STA (03:08)
[2025-10-25] MEDS: cefTRIAXone 2 GM in Water For Injection, Sterile 20 ML IVPUSH ONE (04:01)
== END 2025-10-25 04:13 | disposition home or self-care (01) ==
LOC: MW.ED 02:00
DX: N12 Tubulo-interstitial nephritis, not specified as acute or chronic (principal); K76.0 Fatty (change of) liver, not elsewhere classified; R03.0 Elevated blood-pressure reading, without diagnosis of hypertension; E86.0 Dehydration; D72.829 Elevated white blood cell count, unspecified; Z88.8 Allergy status to other drugs, medicaments and biological substances; Z90.49 Acquired absence of other specified parts of digestive tract
CPT/HCPCS: 36415; 74177; 80053; 81001; 83690; 84703; 85025; 96361; 96374; 96375; 99284; A4216; A9270; J0696; J1790; J7030; Q9967; 99283